=== PATIENT | male | born 1955 | race Caucasian/White ===

== ENCOUNTER 2022-04-11 12:40 | Outpatient (CLI) | payer MEDICARE, BC, SELFPAY | END 2022-04-11 12:41 | disposition home or self-care (01) | LOC: INJ CL 12:41 | PROVIDERS: PCP Family Medicine; Visit Provider Family Medicine | DX: M17.12 Unilateral primary osteoarthritis, left knee (principal); M25.562 Pain in left knee | CPT/HCPCS: 64454 ==

== ENCOUNTER 2022-05-05 09:15 | Outpatient (CLI) | payer MEDICARE, BC, SELFPAY | END 2022-05-05 09:16 | disposition home or self-care (01) | PROVIDERS: PCP Family Medicine; Visit Provider Family Medicine | DX: G89.29 Other chronic pain (principal); M17.12 Unilateral primary osteoarthritis, left knee; M25.562 Pain in left knee | CPT/HCPCS: 64624; J2250; J3010 ==

== ENCOUNTER 2023-08-16 10:26 | Emergency (ER) | payer MEDICARE, BC, SELFPAY ==
[2023-08-16] VITALS (9 sets, daily range): BP systolic 116–156; BP diastolic 77–110; PULSE 71–95; RESP 16; TEMP 36.9; O2SAT 96–97; BMI 28.7
--- NOTE | 2023-08-16 10:55 | ED_ITS ---
HPI - General Adult General Date Seen: 08/16/23 Chief complaint: Arrhythmia/Palpitations Stated complaint: AFIB Time Seen by Provider: 08/16/23 10:50 History of Present Illness HPI narrative: This is a pleasant 68-year-old gentleman accompanied to the ER this morning by his with concern for palpitations. He has a known history of AFib, apparently dating back 6 years. He has had 2 or 3 previous episodes which have been successfully treated with electrical cardioversion. He has not had any symptoms of AFib in about 2 years. He does take Eliquis faithfully and carvedilol to prevent tachycardia S. He is otherwise healthy. He has no history of coronary artery disease, CHF, or any valvular disease. This morning he felt his heart start to race and feel irregular. His Apple smart watch alerted him that he was in AFib. He is not having any chest pain. No lightheadedness or fainting. No trouble breathing. He just feels the palpitations and irregular because he is in AFib. No clear trigger for the AFib. No tobacco. No alcohol. Very limited caffeine (only chocolate, non coffee). No new supplements. No recent vomiting or diarrhea. No history of thyroid disorder. Related Data Home Medications ?Medication ?Instructions ?Recorded ?Confirmed apixaban 5 mg tablet 5 mg PO BID 10/05/22 08/16/23 budesonide 0.5 mg/2 mL suspension 0.5 mg inhalation QDAY 10/05/22 10/05/22 for nebulization carvedilol 3.125 mg tablet 3.125 mg PO BID 10/05/22 08/16/23 ketoconazole 2 % shampoo 1 applic topical .2-3 x week PRN 10/05/22 10/05/22 metronidazole 1 % topical cream 1 applic topical QDAY PRN 10/05/22 10/05/22 tolterodine 4 mg capsule,extended 4 mg PO DAILY 10/05/22 08/16/23 release 24 hr Previous Rx's ?Medication ?Instructions ?Recorded metronidazole 0.75 % topical cream 1 applic topical QDAY #45 grams 10/05/22 finasteride 5 mg tablet 2.5 mg (1/2 x 5 mg) PO DAILY #90 05/01/23 tabs clindamycin phosphate 1 % topical 1 applic topical DAILY #60 mL 06/14/23 solution Allergies Allergy/AdvReac Type Severity Reaction Status Date / Time No Known Drug Allergies Allergy Verified 08/16/23 10:37 PFSH PFS Surgical History (Updated 02/28/22 @ 07:47 by Sarah Gonsalves ~ [facility], [facility]) History of medial meniscus repair of right knee (05/31/01) ?Z98.890 - Other specified postprocedural states (ICD-10) History of sinus surgery (09/06/10) ?Z98.890 - Other specified postprocedural states (ICD-10) H/O nasal polypectomy (09/06/10) ?Z98.890 - Other specified postprocedural states (ICD-10) ?Z87.09 - Personal history of other diseases of the respiratory system (ICD- 10) History of nasal septoplasty (09/06/10) ?Z98.890 - Other specified postprocedural states (ICD-10) H/O arthroscopy of left knee (10/22/08) ?Z98.890 - Other specified postprocedural states (ICD-10) Social History Smoking Status: Former smoker How often do you have a drink containing alcohol: never AUDIT-C Alcohol total score: 0 Non-prescribed substance use: denies use Exam Narrative: Exam Narrative: Constitutional: Appears well-developed and well-nourished. Alert. Conversant. Non toxic. HENT: Head: Atraumatic. Nose: Nose normal. Mouth/Throat: Oral mucosa is clear and moist. no trismus. Pharynx normal. Tonsils symmetric. No tonsillar enlargement, erythema, or exudate. Mallampati 2 Eyes: Conjunctivae normal. EOM normal. Pupils equal, round, and reactive to light. No scleral icterus. Neck: Normal range of motion. Normal flexion and extension. Neck supple. No tracheal deviation present. No JVD Cardiovascular: Normal rate, irregularly irregular rhythm. No gallop. No friction rub. No murmur heard. Symmetric radial artery pulses Pulmonary/Chest: Effort normal. No stridor. No respiratory distress. No wheezes. No rales. No rhonchi . No tenderness. Abdominal: Soft.. No distension. No mass. No tenderness. No rebound. No guarding. Musculoskeletal: RUE: Normal range of motion. No tenderness. No deformity LUE: Normal range of motion. No tenderness. No deformity RLE: Normal range of motion. No edema. No tenderness. No deformity LLE: Normal range of motion. No edema. No tenderness. No deformity Neurological: Alert and oriented to person, place, and time. Normal strength. CN II-VII intact. No sensory deficit. GCS eye subscore is 4. GCS verbal subscore is 5. GCS motor subscore is 6. Normal coordination Skin: Skin is warm and dry. No rash noted. No pallor. Normal capillary refill. Psychiatric: Normal mood. Normal affect. Very polite. Const: Vital Signs, click to edit/add: Vital Signs - 24 hr 08/16/23 10:33 08/16/23 10:48 08/16/23 10:49 Temperature 98.5 F Pulse Rate 95 85 Pulse Rate [Left P ulse Oximeter] 87 Respiratory Rate 16 16 Blood Pressure 146/104 H Blood Pressure [Ri ght Upper Arm] 156/77 H Pulse Oximetry 96 96 97 Oxygen Delivery Me thod Room Air 08/16/23 11:00 08/16/23 11:01 08/16/23 11:15 Temperature Pulse Rate 81 82 80 Pulse Rate [Left P ulse Oximeter] Respiratory Rate 16 Blood Pressure 151/110 H Blood Pressure [Ri ght Upper Arm] Pulse Oximetry 97 97 97 Oxygen Delivery Me thod Room Air 08/16/23 11:30 08/16/23 11:32 08/16/23 11:45 Temperature Pulse Rate 72 71 71 Pulse Rate [Left P ulse Oximeter] Respiratory Rate Blood Pressure 116/88 Blood Pressure [Ri ght Upper Arm] Pulse Oximetry 96 96 96 Oxygen Delivery Me thod Course Course ED Course: recheck. Us with Cardiology, Dr. Simms. She agrees with our plan to go ahead with electrocardioversion here in the ER. If successful patient can follow-up in the next several weeks outpatient with his licensed massage therapist. If unsuccessful level call her back and she will help arrange expeditious outpatient EP follow- up. Vital Signs Vital signs: Initial Vital Signs Temperature 98.5 F 08/16/23 10:33 Temperature Source Temporal Artery Scan 08/16/23 10:33 Pulse Rate 87 08/16/23 10:33 Respiratory Rate 16 08/16/23 10:33 Blood Pressure 156/77 H 08/16/23 10:33 Blood Pressure Mean 103 08/16/23 10:33 Blood Pressure Position Sitting 08/16/23 10:33 Pulse Oximetry 96 08/16/23 10:33 Vital Signs Temperature 98.5 F 08/16/23 10:33 Pulse Rate 87 08/16/23 10:33 Respiratory Rate 16 08/16/23 10:33 Blood Pressure 156/77 H 08/16/23 10:33 Pulse Oximetry 96 08/16/23 10:33 Temperature 98.5 F 08/16/23 10:33 Pulse Rate 71 08/16/23 11:45 Respiratory Rate 16 08/16/23 11:01 Blood Pressure 116/88 08/16/23 11:32 Pulse Oximetry 96 08/16/23 11:45 Oxygen Delivery Method Room Air 08/16/23 11:01 Medications Administered Medications: Discontinued Medications Generic Name Dose Route Start Last Admin Trade Name Freq PRN Reason Stop Dose Admin Sodium Chloride 1,000 mls @ 1,000 mls/hr 08/16/23 12:45 08/16/23 12:55 0.9 % Sodium Chloride 1000 Ml IV 08/16/23 13:44 Infused .Q1H JOSE F Infusion Propofol 200 mg 08/16/23 11:18 08/16/23 12:28 Propofol 10 Mg/Ml Inj IVP 08/16/23 11:19 80 mg ONCE ONE Administration Medical Decision Making [facility] Narrative Medical decision making narrative: This patent presents for evaluation of palpitations, with very clear onset at this morning. He has a history of paroxysmal AFib dating back several years and is already on carvedilol and stroke prophylaxis with Eliquis. He has been consistent in taking his meds and has not missed any doses. This is consistent with atrial fibrillation with rapid ventricular response. Based on acute symptoms less than 48 hours, very clear story, good historian and after obtaining informed consent, electrical cardioversion was successful in converting rhythm back to normal sinus. I doubt acute coronary syndrome, thyroid issues, PE, dissection, drug ingestion, acute electrolyte imbalance, etc. Labs reassuring. Repeat EKG looks excellent. Asymptomatic after cardioversion now and would not hospitalize. Discussed with patient and the patient is in agreement. He will continue on his current medication regimen and follow up outpatient with Cardiology. Precautions for return to the ER reviewed. Reviewed sedation precautions with the patient and his . He will not drive and will avoid dangerous activities today. Lab Data Labs: Lab Results 08/16/23 Range/Units 11:15 WBC 6.62 (4.50-11.00) K/uL RBC 5.18 (4.30-5.90) m/uL Hgb 15.5 (13.5-17.5) gm/dL Hct 45.9 (37.0-53.0) % MCV 89 (80-100) fL MCH 30 (26-34) pg MCHC 34 (32-36) gm/dL RDW Coeff of Jeremy 11.8 (11.5-15.5) % Plt Count 218 (140-440) K/uL Neut % (Auto) 62.0 (42.0-72.0) % Lymph % (Auto) 20.5 (20-44) % [place] % (Auto) 10.1 (0.0-11.0) % Eos % (Auto) 5.9 (0.0-7.0) % Baso % (Auto) 0.3 (0.0-3.0) % Neut # (Auto) 4.10 (1.7-7.0) K/uL Lymph # (Auto) 1.36 (0.90-2.90) K/uL [place] # (Auto) 0.70 (0.00-0.90) K/UL Eos # (Auto) 0.39 (0.00-0.50) K/uL Baso # (Auto) 0.02 (0.00-0.30) K/uL Abs Immat Gran (auto) 0.08 (0.00-0.30) K/uL Imm/Tot Granulo (auto) 1.2 % Sodium 138 (135-149) mmol/L Potassium 4.1 (3.6-5.1) mmol/L Chloride 106 (96-114) mmol/L Carbon Dioxide 25 (20-32) mmol/L Anion Gap 7 (7-15) mEq/L BUN 18 (7-30) mg/dL Creatinine 0.9 (0.5-1.5) mg/dL Estimated Creat Clear 73.00 Estimated GFR 93 ml/min Glucose 134 H (60-115) mg/dL Calcium 8.6 (8.4-10.6) mg/dL Troponin I < 0.01 L (0.01-0.04) ng/mL ECG Data Attestation: I personally reviewed and interpreted this ECG as follows: Interpretation: Atrial fibrillation with normal ventricular response. Premature ventricular contractions Rate: 94 MT: na QRS axis: Normal axis. ST segment/T wave: T-wave inversions 2, 3, AVF. No ST segment elevation or depression. QTc: Prolonged QT. QTC 460 Discharge Plan Discharge Clinical Impression: Atrial fibrillation Patient Disposition: Home, Self-Care Condition: Stable Instructions: A-fib (Atrial Fibrillation) (ED) Additional Instructions: As we discussed, please call your licensed massage therapist at [facility] today to arrange a follow-up appointment for your AFib in the next few weeks. Continue on your current medications. If you have more trouble with AFib such as palpitations, or if you have dizzy spells, fainting, lightheadedness, chest pain, or trouble breathing, please come back to the ER right away. Because you had sedation medication today should not drive today. Stay home and rest. Light activities are fine but avoid any strenuous activity or dangerous activities until tomorrow. Prescriptions: No Action apixaban 5 mg tablet 5 mg PO BID budesonide 0.5 mg/2 mL suspension for nebulization 0.5 mg inhalation QDAY ketoconazole 2 % shampoo 1 applic topical .2-3 x week PRN metronidazole 1 % cream 1 applic topical QDAY PRN metronidazole 0.75 % cream 1 applic topical QDAY Qty: 45 1RF carvedilol 3.125 mg tablet 3.125 mg PO BID tolterodine 4 mg capsule,extended release 24hr 4 mg PO DAILY finasteride 5 mg tablet 2.5 mg PO DAILY Qty: 90 0RF clindamycin phosphate 1 % solution 1 applic topical DAILY Qty: 60 0RF Follow Up/Referrals: Mike Costello MD [Primary Care Provider] - Stand Alone Forms: [facility] Info Instructions Procedures Procedural Sedation Pre procedure diagnosis: Atrial fibrillation Post procedure diagnosis: AFib, now converted to sinus Written consent by: patient Verification/time out: correct patient, correct site and correct procedure Assistants, if any: Dr. Meredith, who assisted with cardioversion Indication: other (Cardioversion of atrial fibrillation) ASA Class: II Time of Last PO Intake: 08:00 Mallampati classification: II. soft palate, fauces, uvula visible Preparation: lockstitch cup setter applied, pulse oximeter, capnometry used, supplemental O2 applied, reversal agents at bedside, suction/airway equipment at bedside and IV secured IV Propofol dose (mg): 80 Complications: none Additional Comments: Electrical cardioversion for atrial fibrillation performed by Dr. Meredith. Using synchronized biphasic defibrillator with anterior posterior pad placement. We administered a single shock at 150 joules. This is shock was successful in restoring sinus rhythm.
[2023-08-16 11:47] LABS: Basophils Absolute Auto 0.02 K/uL (0.00-0.30); Basophils Percent Auto 0.3 % (0.0-3.0); Eosinophils Absolute Auto 0.39 K/uL (0.00-0.50); Eosinophils Percent Auto 5.9 % (0.0-7.0); Hematocrit 45.9 % (37.0-53.0); Hemoglobin* 15.5 gm/dL (13.5-17.5); Immature Granulocytes Abs Auto 0.08 K/uL (0.00-0.30); Immature Granulocytes Pct Auto 1.2 %; Lymphocytes Absolute Auto 1.36 K/uL (0.90-2.90); Lymphocytes Percent Auto 20.5 % (20-44); Mean Corpuscular HGB Conc 34 gm/dL (32-36); Mean Corpuscular Hemoglobin 30 pg (26-34); Mean Corpuscular Volume 89 fL (80-100); Monocytes Percent Auto 10.1 % (0.0-11.0); Platelet Count* 218 K/uL (140-440); RDW Coefficient of Variation % 11.8 % (11.5-15.5); Red Blood Count 5.18 m/uL (4.30-5.90); White Blood Count* 6.62 K/uL (4.50-11.00)
[2023-08-16 11:52] LABS: Slide Review Reflex No
--- OUTSIDE RECORDS SUMMARY | 2023-08-16 11:54 | XMS_ITS | Continuity of Care Document ---
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 facilities. It does not include entries that were removed or entered in error. 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 facilities.Medications provided include 1) outpatient medications from the last 15 months, and 2) patient-reported medications. Medication Details Route Status Patient Instructions Prescription Expires Prescription Number Last Dispense Date Ordering Provider Order Date Order Qty Source APIXABAN 5MG TAB TAKE ONE TABLET BY MOUTH TWICE A DAY TO PREVENT STROKES ORAL ACTIVE 09/30/2023 [id number] Casey BRAVO [facility] 2023 180 [facility] APIXABAN 5MG TAB TAKE ONE TABLET BY MOUTH TWICE A DAY TO PREVENT STROKES ORAL DISCONT INUED 07/22/2023 [id number] 4 Casey BRAVO [facility] 2022 180 [facility] CARVEDILOL 6.25MG TAB TAKE ONE-HALF TABLET BY MOUTH TWICE A DAY ORAL ACTIVE HAPAK,SOP HIE M 2019 [facility] CHOLECALCIF CASEY 25MCG (1,000UNIT) TAB TAKE TWO TABLETS BY MOUTH EVERY MORNING ORAL ACTIVE HAPAK,SOP HIE M 2017 [facility] MULTIVITAMI N/MINERALS SENIOR FORMULA TAB TAKE TWO TABLETS BY MOUTH EVERY DAY ORAL ACTIVE FILI GAN 2016 [facility] Immunizations Combined list of available immunizations from the Department of Defense and Veterans Affairs facilities. Immunization Series Date Given Administered By Site Reaction Lot Number CVX Code Drug Silo Painter Status Comments Source INFLUENZA, UNSPECIFIED FORMULATION 2020 88 complet ed [facility] COVID-19 (MODERNA), MRNA, LNP-S, PF, 100 MCG/0.5 ML DOSE 2 2020 207 complet ed MOD: [id number]; 1 [facility] COVID-19 (MODERNA), MRNA, LNP-S, PF, 100 MCG/0.5 ML DOSE 1 2020 207 complet ed MOD; [id number]; 1 [facility] INFLUENZA, UNSPECIFIED FORMULATION 2019 88 complet ed [facility] INFLUENZA, SEASONAL, INJECTABLE 2018 141 complet ed [facility] INFLUENZA, INJECTABLE, QUADRIVALENT, PRESERVATIVE FREE 2017 150 complet ed [facility] Administe red by: [facility] Clinician (NPI=Not Provided) . Partner 3 Lot#: [id number] Mfr: [employer] [facility] INFLUENZA, SEASONAL, INJECTABLE 2016 141 complet ed [facility] INFLUENZA, SEASONAL, INJECTABLE 2016 141 complet ed [facility] TDAP 2016 115 complet ed [employer]. [id number], 08/23/18 [facility] INFLUENZA, SEASONAL, INJECTABLE 2015 141 complet ed [facility] Results Combined list of recent chemistry, hematology and other laboratory results from Department of Defense and Veterans Affairs, ranging from 15 months to all on record, depending upon the facility. Order Name Results Value Reference Range Date Interpretation Specimen Comments Source ALT/SG PT ALANINE AMINOTRANSFE RASE [ENZYMATIC ACTIVITY/VOL UME] IN SERUM OR PLASMA 25 U/L <55 - 55 01/10 Specimen Type: PLASMA No comment entered. Ordering Provider: JORGE WILLIAM Report Released Date/Time: Dec 11, 2022 09:10 AM Reporting Lab: [facility] [address] Performing Lab: [facility] [address] [facility] AST/SG OT ASPARTATE AMINOTRANSFE RASE [ENZYMATIC ACTIVITY/VOL UME] IN SERUM OR PLASMA 24 U/L <34 - 34 01/10 Specimen Type: PLASMA No comment entered. Ordering Provider: JORGE WILLIAM IN M Report Released Date/Time: Dec 11, 2022 09:10 AM Reporting Lab: [facility] [phone] Performing Lab: [place] [address] [facility] CBC LEUKOCYTES [#/VOLUME] IN BLOOD BY AUTOMATED COUNT 6.78 10*3/u L 4.0 - 11.0 01/10 Specimen Type: BLOOD No comment entered. Ordering Provider: JORGE WILLIAM IN M Report Released Date/Time: Dec 11, 2022 09:10 AM Reporting Lab: [facility] [address] Performing Lab: [facility] [address] [facility] CBC ERYTHROCYTES [#/VOLUME] IN BLOOD BY AUTOMATED COUNT 4.99 10*6/u L 4.6 - 6.2 01/10 Specimen Type: BLOOD No comment entered. Ordering Provider: JORGE WILLIAM IN M Report Released Date/Time: Dec 11, 2022 09:10 AM Reporting Lab: [facility] [address] Performing Lab: [facility] [address] [facility] CBC HEMOGLOBIN [MASS/VOLUME ] IN BLOOD 15.0 g/dL 13.5 - 17.9 01/10 Specimen Type: BLOOD No comment entered. Ordering Provider: JORGE WILLIAM IN M Report Released Date/Time: Dec 11, 2022 09:10 AM Reporting Lab: [facility] [address] Performing Lab: [facility] [address] [facility] CBC HEMATOCRIT [VOLUME FRACTION] OF BLOOD BY AUTOMATED COUNT 44.0 41 - 54 01/10 Specimen Type: BLOOD No comment entered. Ordering Provider: JORGE WILLIAM IN M Report Released Date/Time: Dec 11, 2022 09:10 AM Reporting Lab: [facility] [address] Performing Lab: [facility] [address] [facility] CBC MCV [ENTITIC VOLUME] BY AUTOMATED COUNT 88.2 fL 80 - 100 01/10 Specimen Type: BLOOD No comment entered. Ordering Provider: JORGE WILLIAM IN M Report Released Date/Time: Dec 11, 2022 09:10 AM Reporting Lab: [facility] [address] Performing Lab: [facility] [address] [facility] CBC MCH [ENTITIC MASS] BY AUTOMATED COUNT 30.1 pg 27 - 33 01/10 Specimen Type: BLOOD No comment entered. Ordering Provider: JORGE WILLIAM IN M Report Released Date/Time: Dec 11, 2022 09:10 AM Reporting Lab: [facility] [address] Performing Lab: [facility] [address] [facility] CBC MCHC [MASS/VOLUME ] BY AUTOMATED COUNT 34.1 g/dL 32.0 - 37.5 01/10 Specimen Type: BLOOD No comment entered. Ordering Provider: JORGE WILLIAM IN M Report Released Date/Time: Dec 11, 2022 09:10 AM Reporting Lab: [facility] [address] Performing Lab: [facility] [address] [facility] CBC PLATELETS [#/VOLUME] IN BLOOD BY AUTOMATED COUNT 209 10*3/u L 150 - 400 01/10 Specimen Type: BLOOD No comment entered. Ordering Provider: JORGE WILLIAM IN M Report Released Date/Time: Dec 11, 2022 09:10 AM Reporting Lab: [facility] [address] Performing Lab: [facility] [address] [facility] CBC PLATELET MEAN VOLUME [ENTITIC VOLUME] IN BLOOD BY AUTOMATED COUNT 9.7 fL 7.4 - 10.4 01/10 Specimen Type: BLOOD No comment entered. Ordering Provider: JORGE WILLIAM IN M Report Released Date/Time: Dec 11, 2022 09:10 AM Reporting Lab: [facility] [address] Performing Lab: [facility] [address] [facility] CBC ERYTHROCYTE DISTRIBUTION WIDTH [RATIO] BY AUTOMATED COUNT 11.9 11.5 - 14.5 01/10 Specimen Type: BLOOD No comment entered. Ordering Provider: JORGE WILLIAM IN M Report Released Date/Time: Dec 11, 2022 09:10 AM Reporting Lab: [facility] [address] Performing Lab: [facility] [address] [facility] CREATI NINE(I NCLUDE S EGFR) CREATININE [MASS/VOLUME ] IN SERUM OR PLASMA 0.9 mg/dL 0.7 - 1.2 01/10 Specimen Type: PLASMA No comment entered. Ordering Provider: JORGE WILLIAM IN M Report Released Date/Time: Dec 11, 2022 09:10 AM Reporting Lab: [facility] [phone] Performing Lab: [facility] [address] [facility] CREATI NINE(I NCLUDE S EGFR) GLOMERULAR FILTRATION RATE/1.73 SQ M.PREDICTED [VOLUME RATE/AREA] IN SERUM, PLASMA OR BLOOD BY CREATININE-B ASED FORMULA (CKD-EPI 2020) >90 60 01/10 Specimen Type: PLASMA No comment entered. Ordering Provider: JORGE WILLIAM IN M Report Released Date/Time: Dec 11, 2022 09:10 AM Reporting Lab: [facility] [address] Performing Lab: [facility] [address] [facility] ALT/SG PT ALANINE AMINOTRANSFE RASE [ENZYMATIC ACTIVITY/VOL UME] IN SERUM OR PLASMA 31 U/L <55 - 55 11/10 Specimen Type: PLASMA No comment entered. Ordering Provider: CHESTER BRAVO Report Released Date/Time: July 04, 2021 01:00 PM Reporting Lab: [facility] [address] Performing Lab: [facility] [address] [facility] AST/SG OT ASPARTATE AMINOTRANSFE RASE [ENZYMATIC ACTIVITY/VOL UME] IN SERUM OR PLASMA 22 U/L <34 - 34 11/10 Specimen Type: PLASMA No comment entered. Ordering Provider: CHESTER BRAVO Report Released Date/Time: July 04, 2021 01:00 PM Reporting Lab: [facility] [address] Performing Lab: [facility] [address] [facility] CBC LEUKOCYTES [#/VOLUME] IN BLOOD BY AUTOMATED COUNT 7.45 10*3/u L 4.0 - 11.0 11/10 Specimen Type: BLOOD No comment entered. Ordering Provider: CHESTER BRAVO Report Released Date/Time: July 04, 2021 01:00 PM Reporting Lab: [facility] [address] Performing Lab: [facility] [address] [facility] CBC ERYTHROCYTES [#/VOLUME] IN BLOOD BY AUTOMATED COUNT 4.96 10*6/u L 4.6 - 6.2 11/10 Specimen Type: BLOOD No comment entered. Ordering Provider: CHESTER BRAVO Report Released Date/Time: July 04, 2021 01:00 PM Reporting Lab: [facility] [address] Performing Lab: [facility] [address] [facility] CBC HEMOGLOBIN [MASS/VOLUME ] IN BLOOD 15.1 g/dL 13.5 - 17.9 11/10 Specimen Type: BLOOD No comment entered. Ordering Provider: CHESTER BRAVO Report Released Date/Time: July 04, 2021 01:00 PM Reporting Lab: [facility] [address] Performing Lab: [facility] [address] [facility] CBC HEMATOCRIT [VOLUME FRACTION] OF BLOOD BY AUTOMATED COUNT 44.1 41 - 54 11/10 Specimen Type: BLOOD No comment entered. Ordering Provider: CHESTER BRAVO Report Released Date/Time: July 04, 2021 01:00 PM Reporting Lab: [facility] [address] Performing Lab: [facility] [address] [facility] CBC MCV [ENTITIC VOLUME] BY AUTOMATED COUNT 88.9 fL 80 - 100 11/10 Specimen Type: BLOOD No comment entered. Ordering Provider: CHESTER BRAVO Report Released Date/Time: July 04, 2021 01:00 PM Reporting Lab: [facility] [address] Performing Lab: [facility] [address] [facility] CBC MCH [ENTITIC MASS] BY AUTOMATED COUNT 30.4 pg 27 - 33 11/10 Specimen Type: BLOOD No comment entered. Ordering Provider: CHESTER BRAVO Report Released Date/Time: July 04, 2021 01:00 PM Reporting Lab: [facility] [address] Performing Lab: [facility] [address] [facility] CBC MCHC [MASS/VOLUME ] BY AUTOMATED COUNT 34.2 g/dL 32.0 - 37.5 11/10 Specimen Type: BLOOD No comment entered. Ordering Provider: CHESTER BRAVO Report Released Date/Time: July 04, 2021 01:00 PM Reporting Lab: [facility] [address] Performing Lab: [facility] [address] [facility] CBC PLATELETS [#/VOLUME] IN BLOOD BY AUTOMATED COUNT 220 10*3/u L 150 - 400 11/10 Specimen Type: BLOOD No comment entered. Ordering Provider: CHESTER BRAVO Report Released Date/Time: July 04, 2021 01:00 PM Reporting Lab: [facility] [address] Performing Lab: [facility] [address] [facility] CBC PLATELET MEAN VOLUME [ENTITIC VOLUME] IN BLOOD BY AUTOMATED COUNT 9.1 fL 7.4 - 10.4 11/10 Specimen Type: BLOOD No comment entered. Ordering Provider: CHESTER BRAVO Report Released Date/Time: July 04, 2021 01:00 PM Reporting Lab: [facility] [address] Performing Lab: [facility] [address] [facility] CBC ERYTHROCYTE DISTRIBUTION WIDTH [RATIO] BY AUTOMATED COUNT 12.1 11.5 - 14.5 11/10 Specimen Type: BLOOD No comment entered. Ordering Provider: CHESTER BRAVO Report Released Date/Time: July 04, 2021 01:00 PM Reporting Lab: [facility] [address] Performing Lab: [facility] [address] [facility] CREATI NINE(I NCLUDE S EGFR) CREATININE [MASS/VOLUME ] IN SERUM OR PLASMA 0.9 mg/dL .7 - 1.2 11/10 Specimen Type: PLASMA No comment entered. Ordering Provider: CHESTER BRAVO Report Released Date/Time: July 04, 2021 01:00 PM Reporting Lab: [facility] [address] Performing Lab: [facility] [address] [facility] CREATI NINE(I NCLUDE S EGFR) GLOMERULAR FILTRATION RATE/1.73 SQ M.PREDICTED [VOLUME RATE/AREA] IN SERUM, PLASMA OR BLOOD BY CREATININE-B ASED FORMULA (CKD-EPI) >90 60 11/10 Specimen Type: PLASMA No comment entered. Ordering Provider: CHESTER BRAVO Report Released Date/Time: July 04, 2021 01:00 PM Reporting Lab: [facility] [address] Performing Lab: [facility] [address] [facility] Encounters Combined list of: 1) Encounters from Department of [facility] Affairs facilities going back up to thelast 18 months. 2) Encounters from the Department of [facility] facilities going back up to 280 months. 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
CHRISTOPHER BRAVO 07/01 [facility] Social History Combined list of available smoking, tobacco, and other social history from Department of Defense and Veterans Affairs facilities. Social History Type Response Date Comment Sourc e Tobacco smoking status NHIS VA-TOBACCO FORMER USER 06/23/2020 [facility] History of tobacco use TX-TOBACCO QUIT 1 5 YRS OR MORE 06/23/2020 [facility] History of tobacco use VA-TOBACCO FORMER USER 04/30/2019 [facility] History of tobacco use VA-TOBACCO FORMER USER 04/23/2018 [facility] History of tobacco use INPT NO TOBACCO U SE IN LAST 30 DAYS 04/17/2017 [facility] History of tobacco use FORMER TOBACCO US ER 7Y OR GREATER 07/19/2016 [facility] Plan of Care List of future care activities from Department of Veterans Affairs facilities. Additional future care activities may be listed in the Assessment and Plan section. Date/Time Care Activity Care Activity Detail Facili ty 08/22/2023 AMBULATORY - MEDICINE AMBULATORY - MEDICI NE [facility] Advance Directives List of completed, amended, or rescinded Advance Directives on record at Department of Veterans Affairs facilities. An actual copy of the Directive is not included. Date Advance Directive Provider Source 04/19/2017 ADVANCE DIRECTIVE DISCUSSION LUPE SINGH ROLE J [facility]
--- OUTSIDE RECORDS SUMMARY | 2023-08-16 11:55 | XMS_ITS | Encounter Summary ---
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 Name Role Phone Carmela Sweeney MD Primary Care Pr ovider Encounter Details Date Type Department Care Team (Late st Contact Info) Description 09/20/2015 Orders Only [facility] [address] [place] [address] , Bean Estrada MD [address] [place] [address] Social History Tobacco Use Types Packs/Day Years Used Date Smoking Tobacco: Never Assessed Sex and Gender Information Value Date Recorded Sex Assigned at Not on file Gender Identity Not on file Sexual Orientation Not on file documented as of this encounter Plan of Treatment Not on file documented as of this encounter Visit Diagnoses Not on filedocumented in this encounter Care Teams Motor Grader Rough Grade Relationship Specialty Start Date End Date Carmela Sweeney MD [address] [place], [place] [address] PCP - General 05/24/10 documented as of this encounter
--- OUTSIDE RECORDS SUMMARY | 2023-08-16 11:55 | XMS_ITS | Encounter Summary ---
Author Name [facility] Organization [facility] Address [address] [place] [address] Care Team Providers Care Furnace Hand Name Role Phone MARIBEL BROWN Primary Care Provider SHAWN Love Unavailable Unavailable Insurance Providers: All historical and current Section Date Range: From patient's date of to the date document was created. This section includes the names of all active insurance providers for the patient. Insurance Provider Type of Coverage Plan Name Start of Policy Coverage End of Policy Coverage Group Number Member ID Insurance Provider's Telephone Number Policy Ying's Name Patient's Relationship to Policy Ying [place] SU[place] MED[place] SUPPL EMENT Jul 20, 2018 [id number] Ngoc CARTAGENA [place]IENT [place] PREFERRED PROVIDER ORGANIZAT ION (PPO) ALEYDAE DWIGHT AND ROSAMARIA May 20, 2017 [id number] Ngoc CARTAGENA PATIENT [place] SUPPLEMEN EMNA MEDIC ARE SUPPL EMENT Jul 20, 2018 [id number] [phone] Ngoc CARTAGENA PATIENT [place] - WNR [place] SPECIAL CLASS [place] May 25, 2016 CAMP [place] [id number] Ngoc CARTAGENA PATIENT MEDCO ([employer]) PRESCRIPT ION [facility] [place] May 20, 2017 [place] [id number] [phone] Ngoc CARTAGENA PATIENT MEDICARE (WNR) MEDICARE (M) PART A Jul 20, 2018 PART A [id number] Ngoc CARTAGENA PATIENT MEDICARE (WNR) MEDICARE (M) PART B Jul 20, 2018 PART B [id number] Ngoc CARTAGENA PATIENT Selected Encounter This section includes the information on record at PA for the Encounter. Date/Time Encounter Type Encounter Description Reason Provider Source July 02, 2023 02:26 PM QNHP OL DIG ASSMT&MGMT 5-10 CLINICAL PHARMACY ICD-10-CM Z79.01 care home (current) use of anticoagulants [facility] Encounter Template Text not used by PA Assessments - Encounter Diagnoses This section includes the primary and secondary diagnoses documented for the Encounter. 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 This section includes future appointments and future orders which are active, pending or scheduled. Future Appointments This section includes appointments that were scheduled to occur 6 months from the date of the Encounter, up to a maximum of 20 appointments. The data comes from all PA treatment facilities. Appointment Date/Time Appointment Type Appointme nt Facility Name Aug 22, 2023 09:00 AM AMBULATORY - MEDICINE [facility] Social History: Smoking Status (Most current) and Tobacco Use (All prior to encounter date) This section includes the most current, and the historical, smoking and tobacco- related health factors from the PA facility where the Encounter took place. Current Smoking Status This section includes the most current smoking, or tobacco-related health factor, from the PA facility where the Encounter took place. Date/Time Current Smoking Status Marquise alfred June 23, 2020 11:00 AM VA-TOBACCO FORMER USER [facility] Tobacco Use History This section includes a history of the smoking, or tobacco-related health factors, that were collected on or before the date of the Encounter. The data comes from the PA facility where the Encounter took place. Date/Time Smoking Status/Tobacco Use Comment F acility June 23, 2020 11:00 AM VA-TOBACCO QUIT 15 YRS OR MORE [facility] Apr 30, 2019 08:26 AM VA-TOBACCO FORMER USER [facility] Apr 30, 2019 08:26 AM VA-TOBACCO QUIT 15 YRS OR MORE [facility] Apr 23, 2018 11:35 AM VA-TOBACCO FORMER USER [facility] Apr 23, 2018 11:35 AM VA-TOBACCO QUIT 15 YRS OR MORE [facility] Apr 17, 2017 06:26 AM INPT NO TOBACCO USE IN LAST 30 D AYS [facility] July 19, 2016 04:34 PM FORMER TOBACCO USER 7Y OR GREATE R [facility] Advance Directives: All historical and current Section Date Range: From patient's date of to the date document was created. This section includes ALL of a patient's completed or amended PA Advance and Rescinded Directives. The entries below indicate that a directive exists for the patient, but an actual copy is not included with this document. The data comes from all PA facilities. Date Advance Directives Provider Source Apr 19, 2017 ADVANCE DIRECTIVE DISCUSSION LUPE SINGH ROLE J [facility] Encounter Notes: All associated encounter notes This section contains the clinical notes associated to the Encounter. Date/Time Encounter Note(s) Provider Source July 02, 2023 02:39 PM LETTERS: LOCAL TITLE: FOLLOW UP RESULTS LETTER STANDARD TITLE: LETTERS DATE OF NOTE: JULY 02, 2023@14:39 ENTRY DATE: JULY 02, 2023@14:39:19 AUTHOR: PAWEL BRAVO EXP COSIGNER: URGENCY: STATUS: COMPLETED SUBJECT: anticoag [facility] [address] [place] [address] June RAUL CARTAGENA [facility] [id number] Dear Weston: We are following up on your anticoagulant (blood thinner) medication, Apixaban. You haven't been seen by Primary Care since 01/2021; your provider has been advised. Please call the Primary Care Call Center to make an appt in the next 3 months or so. If you fall out of their roster, we can not provide the apixaban. We renewed your prescription for 90 days, no refills, until seen by Primary Care; it will be mailed when due next. Sincerely, [facility] Team Phone number: [phone] -option 1 to schedule or reschedule an appointment -option 2 to refill medications or call the phone number on the bottle -option 3 for all other communication Fax number: [phone] Clinic Hours: Sunday-Sunday, 8:00am to 4:00pm (excluding Federal holidays) PAWEL BRAVO [facility] Clinical Reticle Printer, [facility] PAWEL BRAVO [facility] July 02, 2023 02:38 PM ADDENDUM: LOCAL TITLE: Addendum STANDARD TITLE: ADDENDUM DATE OF NOTE: JULY 02, 2023@14:38:10 ENTRY DATE: JULY 02, 2023@14:38:12 AUTHOR: PAWEL BRAVO EXP COSIGNER: URGENCY: STATUS: COMPLETED PCP Please see note above/plan regarding last known appt. Maddie /nubia/ PAWEL BRAVO [facility] Clinical Reticle Printer, [facility] Signed: 07/02/2023 14:39 Receipt Acknowledged By: 07/08/2023 06:25 /nubia/ SHAWN CALVO MD RESIDENT PHYSICIAN --- Original Document --- 07/02/23 PHARMACY ANTICOAGULATION CLINIC F/U: DOAC DASHBOARD ALERT AND/OR RENEWAL FLAG Anticoagulation regimen: Apixaban 5mg every 12 hours Indication(s): A-fib Relevant PMH: - Prior major bleeds: none - Prior anticoagulants: none Start date: 01/2017 Anticipated duration: indefinite - CHADS2-VASC = 3 (age,HTN,cardiomyopathy) - HAS-BLED = 1 (age)= Moderate risk SUBJECTIVE/OBJECTIVE: Obtained from chart review. Dashboard flags: Pt requested renewal Labs ==== Age: 68 Height: 70 in [177.8 cm] (06/23/2020 10:22) Weight: 213.3 lb [96.75 kg] (01/20/2021 08:25) Collection DT Specimen Test Name Result Units Ref Range 01/10/2023 07:38 PLASMA CREATININE 0.9 mg/dL 0.7 - 1.2 11/10/2021 09:44 PLASMA CREATININE 0.9 mg/dL .7 - 1.2 08/03/2020 07:08 PLASMA CREATININE 0.9 mg/dL 0.7 - 1.2 04/30/2019 08:02 PLASMA CREATININE 0.9 mg/dL 0.7 - 1.2 04/22/2018 09:31 PLASMA CREATININE 0.8 mg/dL .7 - 1.2 04/20/2017 05:30 PLASMA CREATININE 1.0 mg/dL .7 - 1.2 Cockcroft & Gault (Actual body weight) = >100 mL/min Collection DT Spec WBC HGB HCT PLT MCV 01/10/2023 07:38 BLOOD 6.78 15.0 44.0 209 88.2 01/10/2023 07:38 PLASMA AST/SGOT 24 U/L Ref: <=34 01/10/2023 07:38 PLASMA ALT/SGPT 25 U/L Ref: <=55 ASSESSMENT/PLAN: Per chart review, appropriate for continued anticoagulant use. No contraindications noted. Benefit of therapy continues to outweigh risk. Lab monitoring current and without concern. - Risk/benefit/background updated as above. - Continue anticoagulation at current dose. - Monitor dashboard for labs, drug interactions, and compliance. - Dashboard flags reviewed/cleared, if applicable. - Lab monitoring frequency defined by dashboard or as clinically indicated. - Rx reviewed - renewed for 90ds no refills until pt sees a PA MD, it has been > 2yrs - Pt needs annual DOAC labs at [facility]/CB with PCP visit- please order DOAC Bundle - Pt has not been seen by or spoken to PCP since 01/2021- sending alert to PCP and LTP Time spent: 10 min /nubia/ PAWEL BRAVO [facility] Clinical Reticle Printer, [facility] Signed: 07/02/2023 14:37 PAWEL BRAVO [facility] July 02, 2023 02:26 PM PHARMACY OUTPATIEN T MEDICATION MGT NOTE: LOCAL TITLE: PHARMACY ANTICOAGULATION CLINIC F/U STANDARD TITLE: PHARMACY OUTPATIENT MEDICATION MGT NOTE DATE OF NOTE: JULY 02, 2023@14:26:50 ENTRY DATE: JULY 02, 2023@14:26:51 AUTHOR: PAWEL BRAVO EXP COSIGNER: URGENCY: STATUS: COMPLETED PHARMACY ANTICOAGULATION CLINIC F/U Has ADDENDA DOAC DASHBOARD ALERT AND/OR RENEWAL FLAG Anticoagulation regimen: Apixaban 5mg every 12 hours Indication(s): A-fib Relevant PMH: - Prior major bleeds: none - Prior anticoagulants: none Start date: 01/2017 Anticipated duration: indefinite - CHADS2-VASC = 3 (age,HTN,cardiomyopathy) - HAS-BLED = 1 (age)= Moderate risk SUBJECTIVE/OBJECTIVE: Obtained from chart review. Dashboard flags: Pt requested renewal Labs ==== Age: 68 Height: 70 in [177.8 cm] (06/23/2020 10:22) Weight: 213.3 lb [96.75 kg] (01/20/2021 08:25) Collection DT Specimen Test Name Result Units Ref Range 01/10/2023 07:38 PLASMA CREATININE 0.9 mg/dL 0.7 - 1.2 11/10/2021 09:44 PLASMA CREATININE 0.9 mg/dL .7 - 1.2 08/03/2020 07:08 PLASMA CREATININE 0.9 mg/dL 0.7 - 1.2 04/30/2019 08:02 PLASMA CREATININE 0.9 mg/dL 0.7 - 1.2 04/22/2018 09:31 PLASMA CREATININE 0.8 mg/dL .7 - 1.2 04/20/2017 05:30 PLASMA CREATININE 1.0 mg/dL .7 - 1.2 Cockcroft & Gault (Actual body weight) = >100 mL/min Collection DT Spec WBC HGB HCT PLT MCV 01/10/2023 07:38 BLOOD 6.78 15.0 44.0 209 88.2 01/10/2023 07:38 PLASMA AST/SGOT 24 U/L Ref: <=34 01/10/2023 07:38 PLASMA ALT/SGPT 25 U/L Ref: <=55 ASSESSMENT/PLAN: Per chart review, appropriate for continued anticoagulant use. No contraindications noted. Benefit of therapy continues to outweigh risk. Lab monitoring current and without concern. - Risk/benefit/background updated as above. - Continue anticoagulation at current dose. - Monitor dashboard for labs, drug interactions, and compliance. - Dashboard flags reviewed/cleared, if applicable. - Lab monitoring frequency defined by dashboard or as clinically indicated. - Rx reviewed - renewed for 90ds no refills [facility] a [facility], it has been > 2yrs - Pt needs annual DOAC labs at [facility]/CB with PCP visit- please order DOAC Bundle - Pt has not been seen by or spoken to PCP since 01/2021- sending alert to PCP and LTP Time spent: 10 min /nubia/ PAWEL BRAVO [facility] Clinical Reticle Printer, [facility] Signed: 07/02/2023 14:37 07/02/2023 ADDENDUM STATUS: COMPLETED PCP Please see note above/plan regarding last known appt. Thanks /nubia/ PAWEL BRAVO [facility] Clinical Reticle Printer, [facility] Signed: 07/02/2023 14:39 Receipt Acknowledged By: * AWAITING SIGNATURE * SHAWN CALVO DINAH [facility]
--- OUTSIDE RECORDS SUMMARY | 2023-08-16 11:55 | XMS_ITS | Clinical Summary ---
Author Organization [facility] Address [address] [place] [address] Care Team Providers Care Dip Filler Name Role Phone Carmela Sweeney MD Primary Care Pr ovider Source Comments You are receiving this document as you are listed as the primary care provider,follow-up provider, or the patient has been referred to you for consultation.This is in compliance with the Medicare and[facility] EHR Incentive Program,which states Providers who transition their patient to another setting of careor provider of care or refers their patient to another provider of care shouldprovide summary care record for each transition of care or referral. Favoe Allergies No known active allergies Medications Medication Sig Dispensed Refills Start Date End Date Status ELIQUIS 5 MG tablet 02/18/2018 Activ e lisinopril (ZESTRIL) 20 MG tablet 10/31/2017 Active Active Problems No known active problems Social History Tobacco Use Types Packs/Day Years Used Date Smoking Tobacco: Never Smokeless Tobacco: Never Alcohol Use Standard Drinks/Week Comments Yes 6 (1 standard drink = 0.6 oz pur e alcohol) Sex and Gender Information Value Date Recorded Sex Assigned at Not on file Gender Identity Not on file Sexual Orientation Not on file Last Filed Vital Signs Vital Sign Reading Time Taken Comments Blood Pressure 156/77 03/06/2018 12:43 PM EMERGENCY NURSE Pulse 49 03/06/2018 12:43 PM EMERGENCY NURSE Temperature 36.5 ??C (97.7 ??F) 03/06/2018 12:[address] Respiratory Rate 16 03/06/2018 12:43 PM EMERGENCY NURSE Oxygen Saturation 100% 03/06/2018 12:43 PM EMERGENCY NURSE Inhaled Oxygen Concentration - - Weight 86.2 kg (190 lb 0.6 oz) 03/06/2018 11:59 AM EMERGENCY NURSE Height 177.8 cm (5' 10) 03/06/2018 11:59 AM EMERGENCY NURSE Body Mass Index 27.27 03/06/2018 11:59 AM EMERGENCY NURSE Plan of Treatment Health Maintenance Due Date Last Done Comments Colon Cancer Screening Plan Due 1955 Hep C Screening (Preventive Services) 1955 PSA Screening Discussion 1955 Adult Preventive Visit 1973 Cholesterol 1990 Zoster/Shingles (1 of 2) 2005 Pneumococcal 65+ Yrs (2 - PCV) 03/29/2021 03/29/2020 COVID-19 Vaccine ( - season) 2022 Influenza (Season Ended) 2023 020, 11/05/2018, 11/27/2017, Additional history exists DTaP/Tdap/Td (3 - Tdap) 04/03/2029 04/03/19 20, 04/19/2007, 02/26/1995 HepA Aged Out No longer eligi ble based on patient's age to complete this topic HepB Aged Out No longer eligi ble based on patient's age to complete this topic Hib Aged Out No longer eligi ble based on patient's age to complete this topic IPV (Polio) Aged Out No longer eligi ble based on patient's age to complete this topic MCV4 Aged Out No longer eligi ble based on patient's age to complete this topic Advance Directives * Full Code (Latest Code Status on File) Date Activated Date Inactivated Comments 03/06/2018 12:09 PM 03/07/2018 11:31 AM * Full Code Date Activated Date Inactivated Comments 01/26/2016 11:31 AM 01/26/2016 2:30 PM Care Teams Dip Filler Relationship Specialty Start Date End Date Carmela Sweeney MD [address] [place] [address] PCP - General 05/24/10
--- OUTSIDE RECORDS SUMMARY | 2023-08-16 11:55 | XMS_ITS | Clinical Summary ---
Author Organization [employer] [facility] Address [place], [place] [address] Care Team Providers Care Hide Inspector And Sorter Name Role Phone Mike Costello MD Primary Care Provider Allergies No known active allergies Medications Medication Sig Dispensed Refills Start Date End Date Status apixaban (ELIQUIS) 5 mg tablet Take 1 tablet by mouth 2 times daily. Patient is unsure of exact dose. 0 09/22/2019 Active budesonide (PULMICORT RESPULES) 0.5 mg/2 mL neb suspensionIndication s:Chronic pansinusitis USE 2 ML(0.5 MG) VIA NEBULIZER EVERY DAY 60 mL 5 10/19/2022 Active carvediloL (COREG) 3.125 mg tabletIndications:Pa roxysmal atrial fibrillation (HC),Ventricular tachycardia (HC) TAKE 1 TABLET(3.125 MG) BY MOUTH TWICE DAILY WITH MEALS 180 Tablet 3 11/29/2022 Active sildenafil citrate (VIAGRA) 100 mg tabletIndications:Er ectile dysfunction, unspecified erectile dysfunction type Take 1 Tablet (100 mg) by mouth once daily if needed for Erectile Dysfunction. Take 30min to 4 hours before sexual activity. Max 100mg/24hr. 15 Tablet 12 12/01/2022 Active tolterodine (DETROL LA) 4 mg Extended-Release capsuleIndications:O veractive bladder TAKE 1 CAPSULE(4 MG) BY MOUTH EVERY DAY 90 Capsule 1 03/12/2023 Active clindamycin 1% (CLEOCIN-T) 1 % lotion Apply 60 mL topically to affected area(s) two times daily. 06/27/2023 Active Active Problems Problem Noted Date Diagnosed Date Chronic systolic congestive heart failure 2023 Paroxysmal atrial fibrillation 07/10/2023 Hypertriglyceridemia 07/10/2023 Benign essential HTN 02/22/2023 PAF (paroxysmal atrial fibrillation) 02/21/2019 NSVT (nonsustained ventricular tachycardia) 04/2019 Hyperlipidemia, mixed 02/04/2015 Prediabetes 02/04/2015 Overweight 02/04/2015 Chronic rhinitis 04/18/2007 Unspecified nasal polyp 04/18/2007 BPH (benign prostatic hyperplasia) Resolved Problems Problem Noted Date Diagnosed Date Resolved Date Non-ischemic cardiomyopathy 02/21/2019 10/19/2021 Overview: - 01/2017 [place]: EF 30% - 03/2017 [place]: EF 40-45% - 12/06/18 Echo at [facility]: EF 45% Routine general medical exam ination at a health care facility 03/29/2020 Overview: Lipids - 04/12/95 cholesterol 183, LDL 111 Dexa- none Colon - 2000 Thyroid- none PSA - 09/16/99 - 0.3 Hep B-none Tetanus-1995 Diabetic-no Encounters Date Type Department Care Team Description 08/16/2023 Nurse Triage [facility] [address] [place] [address] Sofía Bailey PA heart rate 08/16/2023 Nurse Triage [facility] [address] [place] [address] Mike Costello MD Fast Heartbeat 08/16/2023 Telephone [facility] [place] [facility] [place] [address] [facility] [address] [place] [address] Elvin Modi MD Error-please disregard 07/10/2023 2:00 PM CDT Office Visit [facility] [address] [place] [phone] Elvin Modi MD Follow Up (Yearly follow up Paroxysmal atrial fibrillation ) 07/10/2023 Travel 06/02/2023 Refill [facility] [address] [place] [address] Mike Costello MD Refill Request (Tolterodine) from Last 3 Months Immunizations Name Administration Dates Next Due AMB Influenza, IIV3 (Age >=3 years)(Flu Clinic Only) 11/29/2010 AMB Influenza, IIV4 PF (=>6 mos Flulaval,Fluzone Fluarix)(Flu Clinic Only) 11/11/2019,12/12/2016 COVID-19 vaccine (Moderna 100mcg/0.5mL) PF, MDV 05/03/2020 COVID-19 vaccine (Moderna Arian kyler 50mcg/0.25mL) PF, MDV 05/30/2021 COVID-19 vaccine (MePleaseBio NTech 30mcg/0.3mL) 12YO+ HAO-SUCROSE PF, MDV 10/19/2021 Influenza Virus, Unspecified 11/20/2019 Influenza, High-dose Quadriv alent Inactivated 11/16/2022,11/15/2021 Influenza, IIV3 (Age >=3 years) 02/27/19 13,12/27/2004,12/16/2002,01/06 Influenza, IIV4 11/05/2018, 8,01/03/2016,02/04 Influenza, Inactivated AIIV4 (Age 65+ Years) Preserv Free 12/08/2020 Pneumococcal Conj 20-valent (Prevnar 20) 10/19/2021 Pneumococcal Poly,23-Valent (Pneumovax) 03/29/2020 Td (Age >=7 Years) 02/26/1995 Td, Preservative Free (age > = 7 Years) 04/03/2019 Tdap 07/20/2016,04/19/2007 04/19/2017 Zoster (Shingrix-RZV, recombinant) 01/14/2022, Family History Medical History Relation Name Comments Cancer-prostate Brother d68 Cancer-prostate Father at age 72 Other Mother pancreatic canc er at age 68 Cancer-breast Sister Anesthesia Problem No Family History Cancer-colon No Family History Diabetes No Family History Heart Disease No Family History Relation Name Status Comments Brother Father Mother Sister Social History Tobacco Use Types Packs/Day Years Used Date Smoking Tobacco: Former Cigarettes 0.5 10 0 04/19/1982 - 04/19/1992 Smokeless Tobacco: Never Tobacco Cessation:Counseling Given: Yes Alcohol Use Standard Drinks/Week Comments Never 0 (1 standard drink = 0.6 oz pur e alcohol) ` PHQ-2 Answer Date Recorded PHQ-2 TOTAL SCORE 0 02/22/2023 Social Connections Answer Date Recorded Frequency of Communication with Friends and Fami ly 0 02/22/2023 Financial Resource Strain Answer Date R ecorded Difficulty of Paying Living Expenses 3 02/22/2023 Difficulty of Paying Living Expenses Not on file 02/22/2023 Food Insecurity Answer Date Recorded Worried About Running Out of Food in the Last Ye ar 1 02/22/2023 Transportation Needs Answer Date Record ed Lack of Transportation (Medical) 1 02/22/2023 Housing Stability Answer Date Recorded Unable to Pay for Housing in the Last Year 1 02/22/2023 Sex and Gender Information Value Date Recorded Sex Assigned at Not on file Gender Identity Not on file Sexual Orientation Not on file Obstetrics History Last Filed Vital Signs Vital Sign Reading Time Taken Comments Blood Pressure 128/79 07/10/2023 1:55 PM CDT Pulse 64 07/10/2023 1:55 PM CDT Temperature 36.4 ??C (97.5 ??F) 03/20/2022 1:20 PM CS T Respiratory Rate 16 06/06/2021 9:27 AM CDT Oxygen Saturation 95% 07/10/2023 1:55 PM CDT Inhaled Oxygen Concentration - - Weight 86.6 kg (191 lb) 07/10/2023 1:55 PM CDT Height 173.2 cm (5' 8.19) 02/22/2023 3:00 PM CS T Body Mass Index 28.88 02/22/2023 3:00 PM FACILITIES PAINTER Plan of Treatment Upcoming Encounters Date Type Department Care Team (Late st Contact Info) Description 11/23/2023 8:15 AM CDT Orders Only [facility] [address] [place] [address] Lab, [place] 11/30/2023 8:15 AM CDT Office Visit [facility] [address] [place] [address] Javon Chakraborty MD [address] [place] [address] Health Maintenance Due Date Last Done Comments COVID-19 vaccine series (2022- season) 2023 11/16/2022, 10/19/2021, 05/30/2021, Additional history exists Influenza for age 65+ 10/21/2023 11/16/2022 , 11/15/2021, 12/08/2020, Additional history exists BMI (ht and wt on same day) for age 18+ 02/23/2024 02/22/2023, 10/19/2021, 08/20/2020, Additional history exists Depression screening for age 12+ 02/23/2024 02/22/2023, 10/19/2021, 03/29/2020, Additional history exists Medicare Wellness for age 65+ 02/23/2024, 10/19/2021, 03/29/2020 Fecal testing non-DNA (FIT,FOBT,iFOBT) for age 45-75 02/27/2024 02/26/2023, 01/04/2021, 12/02/2019 Lipids for age 45-75 02/23/2028 02/22/2023, 10/19/2021, 03/29/2020, Additional history exists Tetanus booster 04/03/2029 04/03/2019, 06/02/2016, 04/19/2007, Additional history exists Hepatitis C screening for ag e 18-79 Completed 02/04/2015 Tdap Completed 07/20/2016, 04/19/2007 Pneumococcal series for age 65+ Completed , 03/29/2020 AAA screening age 65-74 Completed 11/01/2021 Zoster (shingles) series for age 50+ Completed 01/14/2022, 11/15/2021 Medical Devices Implanted Type Area Curtain Inspector Device Identifier Shelf Expiration Date Model / Serial / Lot Stent Sinus 8mm Propel Contour Bioabsorb - [id number] Implanted:Qty: 2 on 04/22/2019 by Rogerio Kong MD at [facility] l: [employer]ose [employer] 01/29/2020 [id number]# / / [id number] Stent Ent Reg Steroid-Releas ing Propel Bioabsorb - [id number] Implanted:Qty: 1 on 04/22/2019 by Rogerio Kong MD at [facility] l: [employer]ose [employer] 03/14/2020 [id number]# / / [id number] Stent Ent Reg Steroid-Releas ing Propel Bioabsorb - [id number] Implanted:Qty: 1 on 04/22/2019 by Rogerio Kong MD at [facility] l: Nose [employer] 08/27/2020 [id number]# / / [id number] Sinuva Sinus Implant Implanted:Qty: 2 on 12/04/2019 by Rogerio Kong MD at [facility] l: Nose 12/18/2020 [id number] / / [id number] Procedures Procedure Name Priority Date/Time Associated Diagnosis Comments OCCULT BLOOD IFOBT STOOL Routine 02/26/2023 3:12 PM FACILITIES PAINTER Screening for colon cancer LIPID PANEL W REFLEX MEASURED LDL Routine 02/22/2023 3:37 PM FACILITIES PAINTER Hyperlipidemia, mixed US AORTA Routine 11/01/2021 9:01 AM CDT Screening for AAA (abdominal aortic aneurysm) ANTI HCV Routine 02/04/2015 9:03 AM FACILITIES PAINTER Need for hepatitis C screening test from Last 3 Months or Most Recently Relevant to Health Maintenance Results * OCCULT BLOOD IFOBT STOOL (02/26/2023 3:12 PM FACILITIES PAINTER) STOOL BLOOD ,IFOBT Negative Negative 02/28/2023 3:36 PM FACILITIES PAINTER [facility] Stool STOOL SPECIMEN / Unknown Non-Blood / Unknown 02/26/2023 3:12 PM FACILITIES PAINTER 02/28/2023 3:13 PM FACILITIES PAINTER Mike Costello MD [facility]AT[facility] [address] [place] [address], * (ABNORMAL) LIPID PANEL W REFLEX MEASURED LDL (02/22/2023 3:37 PM FACILITIES PAINTER) CHOLESTEROL,TOTAL 206(H) 100 - 199 mg/dL 02/23/2023 1:50 PM FACILITIES PAINTER [facility] Comment: Cholesterol, Total Reference Ranges Desirable <200 mg/dL Borderline 200-239 mg/dL High >=240 mg/dL TRIGLYCERIDES 246(H) <150 mg/dL 02/23/2023 1:50 PM FACILITIES PAINTER [facility] HDL CHOLESTEROL 52 >40 mg/dL 1:50 PM FACILITIES PAINTER [facility] NON-HDL CHOLESTEROL 154(H) <145 mg/dl 02/23/2023 1:50 PM FACILITIES PAINTER [facility] CHOL/HDL RATIO 3.96 <4.50 02/23/2023 1:50 PM FACILITIES PAINTER [facility] LDL CHOLESTEROL 105 <=130 mg/dL 02/23/2023 1:50 PM FACILITIES PAINTER [facility] VLDL CHOLESTEROL 49(H) <=30 mg/dL 02/23/2023 1:50 PM FACILITIES PAINTER [facility] PROVIDER ORDERED STATUS RANDOM 02/23/2023 1:50 PM FACILITIES PAINTER [facility] Blood BLOOD SPECIMEN / Unknown Venipuncture / Unknown 02/22/2023 3:37 PM FACILITIES PAINTER 02/22/2023 3:38 PM FACILITIES PAINTER Mike Costello MD [facility] [address] [place] [address], [place] * US AORTA (11/01/2021 9:01 AM CDT) Anatomical Region Laterality Modality Abdomen, AORTA Ultrasound 11/01/2021 1:57 PM CDT Narrative 11/01/2021 1:57 PM CDT For Patients: ??As a result of the Century Cures Act, medical imaging exams and procedure reports are released immediately into your electronic medical record. ??You may view this report before your referring provider. ??If you have questions, please contact your health care provider. Examination: US abdominal aorta Indication: Abdominal aortic aneurysm screening. Technique: Rodrigez scale and color Doppler images of the aorta and common iliac arteries are obtained. Comparison: None Findings: Proximal aorta: 2.7 x 2.8 cm Mid aorta: 2.1 x 2.4 cm Distal aorta: 2.1 x 2.4 cm Right common iliac artery: 1.4 x 1.3 cm Left common iliac artery: 1.7 x 1.5 cm Impression: No abdominal aortic aneurysm. Dictated by Boogie Martinez MD @ Nov 01 2021 ??1:57PM (Electronically Signed) ?? Procedure Note Boogie Martinez MD - 11/01/2021 For Patients: As a result of the Cures Act, medical imagingexams and procedure reports are released immediately into your electronicmedical record. You may view this report before your referring provider.If you have questions, please contact your health care provider. Examination: US abdominal aorta Indication: Abdominal aortic aneurysm screening. Technique: Rodrigez scale and color Doppler images of the aorta and common iliac arteriesare obtained. Comparison: None Findings: Proximal aorta: 2.7 x 2.8 cm Mid aorta: 2.1 x 2.4 cm Distal aorta: 2.1 x 2.4 cm Right common iliac artery: 1.4 x 1.3 cm Left common iliac artery: 1.7 x 1.5 cm Impression: No abdominal aortic aneurysm. Dictated by Boogie Martinez MD @ Nov 01 2021 1:57PM (Electronically Signed) Mike Costello MD [place] * ANTI HCV [61085.2] (02/04/2015 9:03 AM FACILITIES PAINTER) HEPATITIS C ANTIBODY Non-Reacti ve Non-Reacti ve 02/04/2015 4:58 PM [facility] Blood specimen (specimen) BLOOD SPECIMEN / Unknown Venipuncture / Unknown 02/04/2015 9:03 AM FACILITIES PAINTER 02/04/2015 9:03 AM FACILITIES PAINTER Narrative [facility] - 02/04/2015 4:58 PM FACILITIES PAINTER Antibodies to HCV not detected; does not exclude the possibility of exposure to HCV. Mike Costello MD SEND OUTS [facility] [address] [place] [address], [place] from Last 3 Months or Most Recently Relevant to Health Maintenance Advance Directives * Full Code (Latest Code Status on File) Date Activated Date Inactivated Comments 12/04/2019 8:09 AM 12/04/2019 1:33 PM Question Answer Comments Code Status Discussion: Discussed * Full Code Date Activated Date Inactivated Comments 04/22/2019 11:55 AM 04/22/2019 5:50 PM * Full Code Date Activated Date Inactivated Comments 02/21/2019 9:43 AM 02/21/2019 5:25 PM Care Teams Hide Inspector And Sorter Relationship Specialty Start Date End Date Mike Costello MD [address] [place] [address] PCP - General 03/26/07
[2023-08-16 12:06] LABS: Chloride* 106 mmol/L (96-114); Potassium* 4.1 mmol/L (3.6-5.1); Sodium* 138 mmol/L (135-149)
[2023-08-16 12:09] LABS: Anion Gap 7 mEq/L (7-15); Blood Urea Nitrogen* 18 mg/dL (7-30); Carbon Dioxide* 25 mmol/L (20-32); Creatinine* 0.9 mg/dL (0.5-1.5); Estimated Glomerular Filt Rate 93 ml/min; Glucose* 134 mg/dL (60-115)
[2023-08-16 12:10] LABS: Calcium* 8.6 mg/dL (8.4-10.6)
[2023-08-16] MEDS: 0.9 % SODIUM CHLORIDE 1000 ml 1,000 ML IV (12:20)
[2023-08-16] MEDS: PROPOFOL 10 MG/ML INJ 200 MG IVP (12:28)
[2023-08-16 12:33] LABS: Troponin I* < 0.01 ng/mL (0.01-0.04)
--- NOTE | 2023-08-16 12:51 | ED.NURSE ---
This RN witnessed waste of 12 mL Propofol with CROW Estrada @ 1251 hours
== END 2023-08-16 13:40 | disposition home or self-care (01) ==
PROVIDERS: Emergency Provider Emergency Medicine; PCP Family Medicine
DX: I48.91 Unspecified atrial fibrillation (principal)
CPT/HCPCS: 92960; 36415; 80048; 84484; 85025; 93005; 99284; 99285; J2704; J7030

== ENCOUNTER 2023-08-24 09:07 | Emergency (ER) | payer MEDICARE, BC, SELFPAY ==
[2023-08-24] VITALS (34 sets, daily range): BP systolic 142; BP diastolic 94; PULSE 82; RESP 6–18; TEMP 36.8; O2SAT 92–98; BMI 28.7
--- NOTE | 2023-08-24 09:34 | CRLHL7_ITS ---
For Patients: As a result of the Cures Act, medical imaging exams and procedure reports are released immediately into your electronic medical record. You may view this report before your referring provider. If you have questions, please contact your health care provider. INDICATION: Palpitations TECHNIQUE: 1 view chest radiograph COMPARISON: None. FINDINGS: Devices: None. Lung volumes are good. No focal or diffuse opacities. No pleural effusion. No pneumothorax. Heart size is normal for lung volumes and technique. IMPRESSION: Normal chest radiograph. Dictated by Ruth Herring MD @ 08/24/2023 10:30:55 AM (Electronically Signed)
--- NOTE | 2023-08-24 09:35 | ED_ITS ---
HPI - Arrhythmia/Palpitations General Chief Complaint: Arrhythmia/Palpitations <Devon Johnson MD - Last Filed: 08/24/23 12:09> Stated Complaint: A-Fib <Devon Johnson MD - Last Filed: 08/24/23 12:09> Time Seen by Provider: 08/24/23 09:27 <Devon Johnson MD - Last Filed: 08/24/23 12:09> History of Present Illness HPI narrative: Patient is a 68-year-old gentleman who presents with irregular heartbeat. Patient has long history of atrial fibrillation but is done well with previous cardioversions. Patient had a cardioversion approximately a week ago and has been in normal sinus rhythm since that time. Patient is compliant with his Eliquis. He also takes carvedilol. No medication changes were made at the time of his discharge a week ago. He has been feeling well until this morning when he developed irregular heartbeat while exercising. Patient has had no chest pain no shortness a breath orthopnea no PND no peripheral edema no nausea no vomiting. Patient is discouraged that he has gone back and atrial fibrillation which is confirmed by his EKG today. Very much like to be cardioverted back to sinus rhythm again. <Devon Johnson MD - Last Filed: 08/24/23 12:09> Related Data Home Medications: Home Medications ?Medication ?Instructions ?Recorded ?Confirmed apixaban 5 mg tablet 5 mg PO BID 10/05/22 08/16/23 budesonide 0.5 mg/2 mL suspension 0.5 mg inhalation QDAY 10/05/22 10/05/22 for nebulization carvedilol 3.125 mg tablet 3.125 mg PO BID 10/05/22 08/16/23 ketoconazole 2 % shampoo 1 applic topical .2-3 x week PRN 10/05/22 10/05/22 metronidazole 1 % topical cream 1 applic topical QDAY PRN 10/05/22 10/05/22 tolterodine 4 mg capsule,extended 4 mg PO DAILY 10/05/22 08/16/23 release 24 hr Previous Rx's ?Medication ?Instructions ?Recorded metronidazole 0.75 % topical cream 1 applic topical QDAY #45 grams 10/05/22 finasteride 5 mg tablet 2.5 mg (1/2 x 5 mg) PO DAILY #90 05/01/23 tabs clindamycin phosphate 1 % topical 1 applic topical DAILY #60 mL 06/14/23 solution <Devon Johnson MD - Last Filed: 08/24/23 12:09> Allergies/Adverse Reactions: Allergies Allergy/AdvReac Type Severity Reaction Status Date / Time No Known Drug Allergies Allergy Verified 08/16/23 10:37 <Devon Johnson MD - Last Filed: 08/24/23 12:09> Review of Systems Status of ROS: Reports: 10 or more systems reviewed and unremarkable except as noted in History and below <Devon Johnson MD - Last Filed: 08/24/23 12:09> [facility] Medical History: Medical History Atrial fibrillation ?I48.91 - Unspecified atrial fibrillation (ICD-10) <Devon Johnson MD - Last Filed: 08/24/23 12:09> Surgical History: Surgical History History of medial meniscus repair of right knee (05/31/01) ?Z98.890 - Other specified postprocedural states (ICD-10) History of sinus surgery (09/06/10) ?Z98.890 - Other specified postprocedural states (ICD-10) H/O nasal polypectomy (09/06/10) ?Z98.890 - Other specified postprocedural states (ICD-10) ?Z87.09 - Personal history of other diseases of the respiratory system (ICD- 10) History of nasal septoplasty (09/06/10) ?Z98.890 - Other specified postprocedural states (ICD-10) H/O arthroscopy of left knee (10/22/08) ?Z98.890 - Other specified postprocedural states (ICD-10) <Devon Johnson MD - Last Filed: 08/24/23 12:09> Social History: Social History Smoking Status: Former smoker How often do you have a drink containing alcohol: never How often do you have six or more drinks on one occasion: Never AUDIT-C Alcohol total score: 0 Non-prescribed substance use: denies use service: Yes <Devon Johnson MD - Last Filed: 08/24/23 12:09> Exam Narrative: Exam Narrative: EXAM GENERAL: Patient appears comfortable and well. EYES: No scleral icterus. ENT: Tympanic membranes and oropharynx normal. THYROID: no thyroid nodules or thyromegaly. LYMPH: No supraclavicular or cervical lymphadenopathy. SKIN: Visible skin seen during exam normal or with benign process only. EXT: No dependent lower extremity pedal edema. HEART: Irregularly irregular no rubs clicks gallops or murmurs. LUNGS: Clear to auscultation bilaterally with no crackles or wheezes. ABD: Soft, non tender, non distended. PSYCH: Good eye contact, speech is not pressured. <Devon Johnson MD - Last Filed: 08/24/23 12:09> Const: Vital Signs, click to edit/add: Vital Signs - 24 hr 08/24/23 09:15 08/24/23 09:19 08/24/23 09:20 Pulse Rate [Left P ulse Oximeter] 82 Respiratory Rate 18 Blood Pressure [Le ft Upper Arm] 142/94 H Pulse Oximetry 96 97 97 [facility] 08/24/23 09:30 08/24/23 09:32 08/24/23 09:40 Pulse Rate [Left P ulse Oximeter] Respiratory Rate Blood Pressure [Le ft Upper Arm] Pulse Oximetry 96 97 96 [facility] 08/24/23 09:47 08/24/23 09:50 08/24/23 09:57 Pulse Rate [Left P ulse Oximeter] Respiratory Rate 10 L Blood Pressure [Le ft Upper Arm] Pulse Oximetry 96 96 96 [facility] 08/24/23 10:00 08/24/23 10:02 08/24/23 10:10 Pulse Rate [Left P ulse Oximeter] Respiratory Rate 15 14 14 Blood Pressure [Le ft Upper Arm] Pulse Oximetry 96 95 96 [facility] 08/24/23 10:16 08/24/23 10:20 08/24/23 10:30 Pulse Rate [Left P ulse Oximeter] Respiratory Rate 14 17 6 L Blood Pressure [Le ft Upper Arm] Pulse Oximetry 95 96 96 Oxygen Delivery Me [facility]od 08/24/23 10:32 08/24/23 10:40 08/24/23 10:46 Pulse Rate [Left P ulse Oximeter] Respiratory Rate 14 13 Blood Pressure [Le ft Upper Arm] Pulse Oximetry 95 96 95 Oxygen Delivery Me thod 08/24/23 10:50 08/24/23 11:00 08/24/23 11:01 Pulse Rate [Left P ulse Oximeter] Respiratory Rate Blood Pressure [Le ft Upper Arm] Pulse Oximetry 97 97 97 Oxygen Delivery Me [facility] 08/24/23 11:10 08/24/23 11:19 08/24/23 11:20 Pulse Rate [Left P ulse Oximeter] Respiratory Rate 15 14 16 Blood Pressure [Le ft Upper Arm] Pulse Oximetry 98 92 93 Oxygen Delivery Me [facility] 08/24/23 11:22 08/24/23 11:26 08/24/23 11:30 Pulse Rate [Left P ulse Oximeter] Respiratory Rate 15 15 9 L Blood Pressure [Le ft Upper Arm] Pulse Oximetry 97 96 98 Oxygen Delivery Me thod 08/24/23 11:31 08/24/23 11:36 08/24/23 11:40 Pulse Rate [Left P ulse Oximeter] Respiratory Rate Blood Pressure [Le ft Upper Arm] Pulse Oximetry 98 95 94 Oxygen Delivery Me thod 08/24/23 11:42 08/24/23 11:47 08/24/23 11:53 Pulse Rate [Left P ulse Oximeter] Respiratory Rate Blood Pressure [Le ft Upper Arm] Pulse Oximetry 95 96 97 Oxygen Delivery Me thod <Devon Johnson MD - Last Filed: 08/24/23 12:09> Vital Signs, click to edit/add: Vital Signs - 24 hr 08/24/23 09:15 08/24/23 09:19 08/24/23 09:20 Pulse Rate [Left P ulse Oximeter] 82 Respiratory Rate 18 Blood Pressure [Le ft Upper Arm] 142/94 H Pulse Oximetry 96 97 97 Oxygen Delivery Me thod Room Air 08/24/23 09:30 08/24/23 09:32 08/24/23 09:40 Pulse Rate [Left P ulse Oximeter] Respiratory Rate Blood Pressure [Le ft Upper Arm] Pulse Oximetry 96 97 96 Oxygen Delivery Me thod 08/24/23 09:47 08/24/23 09:50 08/24/23 09:57 Pulse Rate [Left P ulse Oximeter] Respiratory Rate 10 L Blood Pressure [Le ft Upper Arm] Pulse Oximetry 96 96 96 Oxygen Delivery Me thod 08/24/23 10:00 08/24/23 10:02 08/24/23 10:10 Pulse Rate [Left P ulse Oximeter] Respiratory Rate 15 14 14 Blood Pressure [Le ft Upper Arm] Pulse Oximetry 96 95 96 Oxygen Delivery Me thod 08/24/23 10:16 08/24/23 10:20 08/24/23 10:30 Pulse Rate [Left P ulse Oximeter] Respiratory Rate 14 17 6 L Blood Pressure [Le ft Upper Arm] Pulse Oximetry 95 96 96 Oxygen Delivery Me thod 08/24/23 10:32 08/24/23 10:40 08/24/23 10:46 Pulse Rate [Left P ulse Oximeter] Respiratory Rate 14 13 Blood Pressure [Le ft Upper Arm] Pulse Oximetry 95 96 95 Oxygen Delivery Me thod 08/24/23 10:50 08/24/23 11:00 08/24/23 11:01 Pulse Rate [Left P ulse Oximeter] Respiratory Rate Blood Pressure [Le ft Upper Arm] Pulse Oximetry 97 97 97 Oxygen Delivery Me thod 08/24/23 11:10 08/24/23 11:19 08/24/23 11:20 Pulse Rate [Left P ulse Oximeter] Respiratory Rate 15 14 16 Blood Pressure [Le ft Upper Arm] Pulse Oximetry 98 92 93 Oxygen Delivery Me thod 08/24/23 11:22 08/24/23 11:26 08/24/23 11:30 Pulse Rate [Left P ulse Oximeter] Respiratory Rate 15 15 9 L Blood Pressure [Le ft Upper Arm] Pulse Oximetry 97 96 98 Oxygen Delivery Me thod 08/24/23 11:31 08/24/23 11:36 08/24/23 11:40 Pulse Rate [Left P ulse Oximeter] Respiratory Rate Blood Pressure [Le ft Upper Arm] Pulse Oximetry 98 95 94 Oxygen Delivery Me thod 08/24/23 11:42 08/24/23 11:47 08/24/23 11:53 Pulse Rate [Left P ulse Oximeter] Respiratory Rate Blood Pressure [Le ft Upper Arm] Pulse Oximetry 95 96 97 Oxygen Delivery Me thod <Michelle Meredith MD - Last Filed: 08/24/23 11:22> Course Course ED Course: Patient seen and examined. EKG reviewed. We are contacting both Cardiology and Anesthesia to try to move forward with cardioversion. In the meantime troponin CBC basic metabolic panel portable chest x-ray pending. <Devon Johnson MD - Last Filed: 08/24/23 12:09> Consultations Consultation #1: Spoke with Cardiology who were supportive of repeat cardioversion. No change in medications at this time. 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 <Devon Johnson MD - Last Filed: 08/24/23 12:09> Vital Signs Vital signs: Initial Vital Signs Pulse Rate 82 08/24/23 09:15 Pulse Rhythm Irregularly Irregular 08/24/23 09:15 Pulse Strength 3+ Normal 08/24/23 09:15 Respiratory Rate 18 08/24/23 09:15 Blood Pressure 142/94 H 08/24/23 09:15 Blood Pressure Mean 110 H 08/24/23 09:15 Blood Pressure Position Semi-Fowlers 08/24/23 09:15 Pulse Oximetry 96 08/24/23 09:15 Oxygen Delivery Method Room Air 08/24/23 09:15 Vital Signs Pulse Rate 82 08/24/23 09:15 Respiratory Rate 18 08/24/23 09:15 Blood Pressure 142/94 H 08/24/23 09:15 Pulse Oximetry 96 08/24/23 09:15 Oxygen Delivery Method Room Air 08/24/23 09:15 Pulse Rate 82 08/24/23 09:15 Respiratory Rate 9 L 08/24/23 11:30 Blood Pressure 142/94 H 08/24/23 09:15 Pulse Oximetry 97 08/24/23 11:53 Oxygen Delivery Method Room Air 08/24/23 09:15 <Devon Johnson MD - Last Filed: 08/24/23 12:09> Initial Vital Signs Pulse Rate 82 08/24/23 09:15 Pulse Rhythm Irregularly Irregular 08/24/23 09:15 Pulse Strength 3+ Normal 08/24/23 09:15 Respiratory Rate 18 08/24/23 09:15 Blood Pressure 142/94 H 08/24/23 09:15 Blood Pressure Mean 110 H 08/24/23 09:15 Blood Pressure Position Semi-Fowlers 08/24/23 09:15 Pulse Oximetry 96 08/24/23 09:15 Oxygen Delivery Method Room Air 08/24/23 09:15 Vital Signs Pulse Rate 82 08/24/23 09:15 Respiratory Rate 18 08/24/23 09:15 Blood Pressure 142/94 H 08/24/23 09:15 Pulse Oximetry 96 08/24/23 09:15 Oxygen Delivery Method Room Air 08/24/23 09:15 Pulse Rate 82 08/24/23 09:15 Respiratory Rate 9 L 08/24/23 11:30 Blood Pressure 142/94 H 08/24/23 09:15 Pulse Oximetry 97 08/24/23 11:53 Oxygen Delivery Method Room Air 08/24/23 09:15 <Michelle Meredith MD - Last Filed: 08/24/23 11:22> MDM - Arrhythmia/Palpitations MDM Narrative Medical decision making narrative: Patient is a 68-year-old gentleman who presents with atrial fibrillation. He had been cardioverted approximately a week ago. He was exercising today any went back in atrial fibrillation which was confirmed on EKG. Patient presented the emergency room where he otherwise is feeling fine. His labs were normal and I did visit with Cardiology in the did recommend repeat cardioversion. Patient had a slice of toast an hour before. Were able to sedate him with propofol in the emergency room safely and cardiovert him after explaining the risks and benefits of the procedure with 200 joules synchronized. He did resume normal sinus rhythm. Of note he has been on anticoagulation with no interruption for several years. I did again visit with Cardiology and they do not recommend any changes to his medication. He will continue his carvedilol and his Eliquis and follow up with his previously scheduled cardiology appointment next week. <Devon Johnson MD - Last Filed: 08/24/23 12:09> Lab Data Labs: Lab Results 08/24/23 08/24/23 Range/Units 09:28 09:58 WBC 5.90 (4.50-11.00) K/uL RBC 5.29 (4.30-5.90) m/uL Hgb 15.7 (13.5-17.5) gm/dL Hct 46.9 (37.0-53.0) % MCV 89 (80-100) fL MCH 30 (26-34) pg MCHC 34 (32-36) gm/dL RDW Coeff of Jeremy 11.9 (11.5-15.5) % Plt Count 220 (140-440) K/uL Neut % (Auto) 60.1 (42.0-72.0) % Lymph % (Auto) 22.5 (20-44) % Power % (Auto) 9.7 (0.0-11.0) % Eos % (Auto) 5.8 (0.0-7.0) % Baso % (Auto) 0.5 (0.0-3.0) % Neut # (Auto) 3.55 (1.7-7.0) K/uL Lymph # (Auto) 1.33 (0.90-2.90) K/uL Power # (Auto) 0.60 (0.00-0.90) K/UL Eos # (Auto) 0.34 (0.00-0.50) K/uL Baso # (Auto) 0.03 (0.00-0.30) K/uL Abs Immat Gran (auto) 0.08 (0.00-0.30) K/uL Imm/Tot Granulo (auto) 1.4 % Sodium 138 (135-149) mmol/L Potassium 4.2 (3.6-5.1) mmol/L Chloride 106 (96-114) mmol/L Carbon Dioxide 26 (20-32) mmol/L Anion Gap 6 L (7-15) mEq/L BUN 19 (7-30) mg/dL Creatinine 1.0 (0.5-1.5) mg/dL Estimated Creat Clear 73.00 Estimated GFR 82 ml/min Glucose 123 H (60-115) mg/dL Calcium 8.7 (8.4-10.6) mg/dL Troponin I 0.01 (0.01-0.04) ng/mL POC Troponin I 0.00 L (0.01-0.04) ng/ml <Devon Johnson MD - Last Filed: 08/24/23 12:09> Lab Results 08/24/23 08/24/23 Range/Units 09:28 09:58 WBC 5.90 (4.50-11.00) K/uL RBC 5.29 (4.30-5.90) m/uL Hgb 15.7 (13.5-17.5) gm/dL Hct 46.9 (37.0-53.0) % MCV 89 (80-100) fL MCH 30 (26-34) pg MCHC 34 (32-36) gm/dL RDW Coeff of Jeremy 11.9 (11.5-15.5) % Plt Count 220 (140-440) K/uL Neut % (Auto) 60.1 (42.0-72.0) % Lymph % (Auto) 22.5 (20-44) % Power % (Auto) 9.7 (0.0-11.0) % Eos % (Auto) 5.8 (0.0-7.0) % Baso % (Auto) 0.5 (0.0-3.0) % Neut # (Auto) 3.55 (1.7-7.0) K/uL Lymph # (Auto) 1.33 (0.90-2.90) K/uL Power # (Auto) 0.60 (0.00-0.90) K/UL Eos # (Auto) 0.34 (0.00-0.50) K/uL Baso # (Auto) 0.03 (0.00-0.30) K/uL Abs Immat Gran (auto) 0.08 (0.00-0.30) K/uL Imm/Tot Granulo (auto) 1.4 % Sodium 138 (135-149) mmol/L Potassium 4.2 (3.6-5.1) mmol/L Chloride 106 (96-114) mmol/L Carbon Dioxide 26 (20-32) mmol/L Anion Gap 6 L (7-15) mEq/L BUN 19 (7-30) mg/dL Creatinine 1.0 (0.5-1.5) mg/dL Estimated Creat Clear 73.00 Estimated GFR 82 ml/min Glucose 123 H (60-115) mg/dL Calcium 8.7 (8.4-10.6) mg/dL Troponin I 0.01 (0.01-0.04) ng/mL POC Troponin I 0.00 L (0.01-0.04) ng/ml <Michelle Meredith MD - Last Filed: 08/24/23 11:22> Discharge Plan Discharge Clinical Impression: Atrial fibrillation <Devon Johnson MD - Last Filed: 08/24/23 12:09> Patient Disposition: Home, Self-Care <Devon Johnson MD - Last Filed: 08/24/23 12:09> Condition: Stable <Devon Johnson MD - Last Filed: 08/24/23 12:09> Instructions: A-fib (Atrial Fibrillation) (ED) <Devon Johnson MD - Last Filed: 08/24/23 12:09> Additional Instructions: Continue current medications Follow-up with your doctor as previously scheduled Report any change in symptoms. <Devon Johnson MD - Last Filed: 08/24/23 12:09> Activity Level: No Restrictions <Devon Johnson MD - Last Filed: 08/24/23 12:09> No Restrictions <Michelle Meredith MD - Last Filed: 08/24/23 11:22> Discharge Diet: Regular <Devon Johnson MD - Last Filed: 08/24/23 12:09> Regular <Michelle Meredith MD - Last Filed: 08/24/23 11:22> Prescriptions: No Action apixaban 5 mg tablet 5 mg PO BID budesonide 0.5 mg/2 mL suspension for nebulization 0.5 mg inhalation QDAY ketoconazole 2 % shampoo 1 applic topical .2-3 x week PRN metronidazole 1 % cream 1 applic topical QDAY PRN metronidazole 0.75 % cream 1 applic topical QDAY Qty: 45 1RF carvedilol 3.125 mg tablet 3.125 mg PO BID tolterodine 4 mg capsule,extended release 24hr 4 mg PO DAILY finasteride 5 mg tablet 2.5 mg PO DAILY Qty: 90 0RF clindamycin phosphate 1 % solution 1 applic topical DAILY Qty: 60 0RF <Devon Johsnon MD - Last Filed: 08/24/23 12:09> Follow Up/Referrals: Mike Costello MD [Primary Care Provider] - <Devon Johnson MD - Last Filed: 08/24/23 12:09> Stand Alone [facility]: [facility] Inst[facility] <Devon Johnson MD - Last Filed: 08/24/23 12:09> Procedures Additional Procedures Procedure name: Moderate sedation <Michelle Meredith MD - Last Filed: 08/24/23 11:22> Pre procedure diagnosis: Atrial fibrillation <Michelle Meredith MD - Last Filed: 08/24/23 11:22> Post procedure diagnosis: Atrial fibrillation <Michelle Meredith MD - Last Filed: 08/24/23 11:22> Written consent by: patient <Michelle Meredith MD - Last Filed: 08/24/23 11:22> Site marking: not applicable <Michelle Meredith MD - Last Filed: 08/24/23 11:22> Verification/time out: correct patient <Michelle Meredith MD - Last Filed: 08/24/23 11:22> Estimated blood loss (if any): none <Michelle Meredith MD - Last Filed: 08/24/23 11:22> Conclusion: patient tolerated procedure <Michelle Meredith MD - Last Filed: 08/24/23 11:22> Additional comments: I provided anesthesia for this patient's cardioversion. Patient has similar procedure on 08/16/2023. No history of reaction to anesthesia no medical allergies. Risks (including fatal arrhythmias, intubation and ) and benefits were discussed with the patient and consent was sign. Time-out was done and correct patient identified. 90 mL of IV propofol given with good moderate sedation. Cardioversion per Dr. Johnson. <Michelle Meredith MD - Last Filed: 08/24/23 11:22>
[2023-08-24 10:07] LABS: Basophils Absolute Auto 0.03 K/uL (0.00-0.30); Basophils Percent Auto 0.5 % (0.0-3.0); Eosinophils Absolute Auto 0.34 K/uL (0.00-0.50); Eosinophils Percent Auto 5.8 % (0.0-7.0); Hematocrit 46.9 % (37.0-53.0); Hemoglobin* 15.7 gm/dL (13.5-17.5); Immature Granulocytes Abs Auto 0.08 K/uL (0.00-0.30); Immature Granulocytes Pct Auto 1.4 %; Lymphocytes Absolute Auto 1.33 K/uL (0.90-2.90); Lymphocytes Percent Auto 22.5 % (20-44); Mean Corpuscular HGB Conc 34 gm/dL (32-36); Mean Corpuscular Hemoglobin 30 pg (26-34); Mean Corpuscular Volume 89 fL (80-100); Monocytes Percent Auto 9.7 % (0.0-11.0); Neutrophils Absolute Auto 3.55 K/uL (1.7-7.0); Neutrophils Percent Auto 60.1 % (42.0-72.0); Platelet Count* 220 K/uL (140-440); RDW Coefficient of Variation % 11.9 % (11.5-15.5); Red Blood Count 5.29 m/uL (4.30-5.90)
--- OUTSIDE RECORDS SUMMARY | 2023-08-24 10:07 | XMS_ITS | Continuity of Care Document ---
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 It does not include entries that were removed or entered in error. Problem Status Onset Date Problem Type Date of Resolution Comments Source AF- Atrial Fibrillation ([facility] [id number]) Active Condition [facility] Cardiomyopathy Active Condition 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 Medication Details Route Status Patient Instructions Prescription Expires Prescription Number Last Dispense Date Ordering Provider Order Date Order Qty Source APIXABAN 5MG TAB APIXABAN 5MG TAB Active: Susp TAKE ONE TABLET BY MOUTH TWICE A DAY TO PREVENT STROKES TO PREVENT STROKES Aug 22, 2023 180 Aug 22, 2024 [id number] G Oct 07, 2023 PAWEL BRAVO [facility] ORAL SUSPEND ED 08/22/2024 [id number] Casey BRAVO [facility] [address] [facility] APIXABAN 5MG TAB APIXABAN 5MG TAB Disconti nued TAKE ONE TABLET BY MOUTH TWICE A DAY TO PREVENT STROKES TO PREVENT STROKES July 02, 2023 180 Sep 30, 2023 [id number] F July 19, 2023 PAWEL BRAVO [facility] ORAL DISCONT INUED 09/30/2023 [id number] Casey BRAVO [facility] [address] [facility] APIXABAN 5MG TAB APIXABAN 5MG TAB Disconti nued TAKE ONE TABLET BY MOUTH TWICE A DAY TO PREVENT STROKES TO PREVENT STROKES Jul 21, 2022 180 Jul 22, 2023 [id number] E Apr 30, 2023 PAWEL BRAVO [facility] ORAL DISCONT INUED 07/22/2023 [id number] Casey BRAVO I[facility] [address] [facility] CARVEDILOL 6.25MG TAB CARVEDIL OL 6.25MG TAB Non-VA TAKE ONE-HALF TABLET BY MOUTH TWICE A DAY Apr 30, 2019 Non-VA Document ed by: FAIZAN VEE Document ed at: [facility] ORAL ACTIVE HAPAK,SOP HIE M 2019 [facility] CHOLECALCIF CASEY 25MCG (1,000UNIT) TAB CHOLECAL CIFEROL 25MCG (1,000UN IT) TAB Non-VA TAKE TWO TABLETS BY MOUTH EVERY MORNING Apr 17, 2017 Non-VA Document ed by: FAIZAN VEE Document ed at: [facility] ORAL ACTIVE [place],SOP HIE M 2017 [facility] DICLOFENAC NA 1% GEL,TOP DICLOFEN AC NA 1% GEL,TOP Active APPLY 4 GRAMS TOPICALL Y FOUR TIMES A DAY NEEDED TO AFFECTED AREA FOR PAIN TO AFFECTED AREA FOR PAIN Aug 22, 2023 100 Aug 22, 2024 [id number] Aug 22, 2023 SABAS LAW,[facility] TOPICA L ACTIVE 08/22/2024 [id number] SHAWN CHAVARRIA [address] [facility] MULTIVITAMI N/MINERALS SENIOR FORMULA TAB MULTIVIT YING/MIN ERALS SENIOR FORMULA TAB Non-VA TAKE TWO TABLETS BY MOUTH EVERY DAY Sep 15, 2016 Non-VA Document ed by: CHACE GAN TTARIE C Document ed at: [facility] ORAL ACTIVE FILI GAN THEJaz C 2016 [facility] Immunizations Combined list of available immunizations from the Department of Defense and Veterans Affairs facilities. 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 COVID-19 (MODERNA), MRNA, LNP-S, PF, 50 MCG/0.5 ML (AGES 12+ YEARS) [address] [facility] INFLUENZA, HIGH-DOSE, QUADRIVALENT, PF [address] [facility] ZOSTER RECOMBINANT [address] [facility] INFLUENZA, HIGH-DOSE, QUADRIVALENT, PF [address] [facility] ZOSTER RECOMBINANT [address] [facility] COVID-19 (PFIZER), MRNA, LNP-S, PF, 30 MCG/0.3 ML DOSE, HAO-SUCROSE (AGES 12+ YEARS) [address] [facility] PNEUMOCOCCAL CONJUGATE PCV20, POLYSACCHARID E [id number] CONJUGATE, ADJUVANT, PF [address] [facility] COVID-19 (MODERNA), MRNA, LNP-S, PF, 100 MCG/0.5ML DOSE OR 50 MCG/0.25ML DOSE [address] [facility] COVID-19 (MODERNA), MRNA, LNP-S, PF, 100 MCG/0.5ML DOSE OR 50 MCG/0.25ML DOSE [address] [facility] INFLUENZA, ADJUVANTED, QUADRIVALENT, PF [address] [facility] INFLUENZA, UNSPECIFIED FORMULATION [address] [facility] [place] COVID-19 (MODERNA), MRNA, LNP-S, PF, 100 MCG/0.5 ML DOSE 2 2020 207 complet ed MOD: [id number]; 1 [facility] COVID-19 (MODERNA), MRNA, LNP-S, PF, 100 MCG/0.5 ML DOSE 1 2020 207 complet ed MOD; [id number]; 1 [facility] PNEUMOCOCCAL POLYSACCHARID E [id number] [address] [facility] INFLUENZA, UNSPECIFIED FORMULATION 2019 88 complet ed [facility] INFLUENZA, SPLIT VIRUS, QUADRIVALENT, PF [address] [facility] TD (ADULT), 5 LF TETANUS TOXOID, PRESERVATIVE FREE, ADSORBED [address] [facility] INFLUENZA, SEASONAL, INJECTABLE 2018 141 complet ed [facility] INFLUENZA, SPLIT VIRUS, QUADRIVALENT, PF [address] [facility] INFLUENZA, INJECTABLE, QUADRIVALENT, PRESERVATIVE FREE 2017 150 complet ed [facility] Administe red by: [facility] Clinician (NPI=Not Provided) . Partner 3 Lot#: [id number] Mfr: [employer] [facility] INFLUENZA, SPLIT VIRUS, QUADRIVALENT, PF [address] [facility] INFLUENZA, SEASONAL, INJECTABLE 2016 141 complet ed [facility] INFLUENZA, SEASONAL, INJECTABLE [address] [facility] TDAP 2016 115 complet ed [employer]. [id number], 08/23/18 [facility] INFLUENZA, SPLIT VIRUS, QUADRIVALENT, PF [address] [facility] INFLUENZA, SEASONAL, INJECTABLE [address] [facility] INFLUENZA, SPLIT VIRUS, QUADRIVALENT, PF [address] [facility] INFLUENZA, SPLIT VIRUS, TRIVALENT, PRESERVATIVE [address] [facility] INFLUENZA, SPLIT VIRUS, TRIVALENT, PRESERVATIVE [address] [facility] TDAP [address] [facility] INFLUENZA, SPLIT VIRUS, TRIVALENT, PRESERVATIVE [address] [facility] INFLUENZA, SPLIT VIRUS, TRIVALENT, PRESERVATIVE [address] [facility] INFLUENZA, SPLIT VIRUS, TRIVALENT, PRESERVATIVE [address] [facility] Results Combined list of recent chemistry, hematology and other laboratory results from Department of Defense and Veterans Affairs, ranging from 15 months to all on record, depending upon the facility. Order Name Results Value Reference Range Date Interpretation Specimen Comments Source CBC LEUKOCYTES [#/VOLUME] IN BLOOD BY AUTOMATED COUNT 7.29 10*3/u L 4.0 - 11.0 08/21 Specimen Type: BLOOD No comment entered. Ordering Provider: SHAWN CALVO Report Released Date/Time: Aug 22, 2023 09:36 AM Reporting Lab: [facility] [address] Performing Lab: [facility] [address] [facility] CBC ERYTHROCYTE S [#/VOLUME] IN BLOOD BY AUTOMATED COUNT 4.84 10*6/u L 4.6 - 6.2 08/21 Specimen Type: BLOOD No comment entered. Ordering Provider: SHAWN CALVO Report Released Date/Time: Aug 22, 2023 09:36 AM Reporting Lab: [facility] [address] Performing Lab: [facility] [address] [facility] CBC HEMOGLOBIN [MASS/VOLUM E] IN BLOOD 14.5 g/dL 13.5 - 17.9 08/21 Specimen Type: BLOOD No comment entered. Ordering Provider: SHAWN CALVO Report Released Date/Time: Aug 22, 2023 09:36 AM Reporting Lab: [facility] [address] Performing Lab: [facility] [address] [place] [facility] CBC HEMATOCRIT [VOLUME FRACTION] OF BLOOD BY AUTOMATED COUNT 42.3 41 - 54 08/21 Specimen Type: BLOOD No comment entered. Ordering Provider: SHAWN CALVO Report Released Date/Time: Aug 22, 2023 09:36 AM Reporting Lab: [facility] [address] Performing Lab: [facility] [address] [facility] CBC MCV [ENTITIC VOLUME] BY AUTOMATED COUNT 87.4 fL 80 - 100 08/21 Specimen Type: BLOOD No comment entered. Ordering Provider: SHAWN CALVO Report Released Date/Time: Aug 22, 2023 09:36 AM Reporting Lab: [facility] [address] Performing Lab: [facility] [address] [place] [facility] CBC MCH [ENTITIC MASS] BY AUTOMATED COUNT 30.0 pg 27 - 33 08/21 Specimen Type: BLOOD No comment entered. Ordering Provider: SHAWN CALVO Report Released Date/Time: Aug 22, 2023 09:36 AM Reporting Lab: [facility] [address] Performing Lab: [facility] [address] [place] [facility] CBC MCHC [MASS/VOLUM E] BY AUTOMATED COUNT 34.3 g/dL 32.0 - 37.5 08/21 Specimen Type: BLOOD No comment entered. Ordering Provider: SHAWN CALVO Report Released Date/Time: Aug 22, 2023 09:36 AM Reporting Lab: [facility] [address] Performing Lab: [facility] [address] [place] [facility] CBC PLATELETS [#/VOLUME] IN BLOOD BY AUTOMATED COUNT 214 10*3/u L 150 - 400 08/21 Specimen Type: BLOOD No comment entered. Ordering Provider: SHAWN CALVO Report Released Date/Time: Aug 22, 2023 09:36 AM Reporting Lab: [facility] [address] Performing Lab: [facility] [address] [place] [facility] CBC PLATELET MEAN VOLUME [ENTITIC VOLUME] IN BLOOD BY AUTOMATED COUNT 9.7 fL 7.4 - 10.4 08/21 Specimen Type: BLOOD No comment entered. Ordering Provider: SHAWN CALVO Report Released Date/Time: Aug 22, 2023 09:36 AM Reporting Lab: [facility] [address] Performing Lab: [facility] [address] [place] [facility] CBC ERYTHROCYTE DISTRIBUTIO N WIDTH [RATIO] BY AUTOMATED COUNT 11.9 11.5 - 14.5 08/21 Specimen Type: BLOOD No comment entered. Ordering Provider: SHAWN CALVO Report Released Date/Time: Aug 22, 2023 09:36 AM Reporting Lab: [facility] [address] Performing Lab: [facility] [address] [place] [facility] COMPREHEN SIVE METABOLIC PANEL+MG CREATININE [MASS/VOLUM E] IN SERUM OR PLASMA 0.8 mg/dL 0.7 - 1.2 08/21 Specimen Type: PLASMA No comment entered. Ordering Provider: SHAWN CALVO Report Released Date/Time: Aug 22, 2023 09:36 AM Reporting Lab: [facility] [address] Performing Lab: [facility] [address] [place] [facility] COMPREHEN SIVE METABOLIC PANEL+MG UREA NITROGEN [MASS/VOLUM E] IN SERUM OR PLASMA 17 mg/dL 8 - 26 08/21 Specimen Type: PLASMA No comment entered. Ordering Provider: SHAWN CALVO Report Released Date/Time: Aug 22, 2023 09:36 AM Reporting Lab: [facility] [address] Performing Lab: [facility] [address] [place] [facility] COMPREHEN SIVE METABOLIC PANEL+MG GLUCOSE [MASS/VOLUM E] IN SERUM OR PLASMA 91 mg/dL 70 - 100 08/21 Specimen Type: PLASMA No comment entered. Ordering Provider: SHAWN CALVO Report Released Date/Time: Aug 22, 2023 09:36 AM Reporting Lab: [facility] [address] Performing Lab: [facility] [address] [place] [facility] COMPREHEN SIVE METABOLIC PANEL+MG SODIUM [MOLES/VOLU ME] IN SERUM OR PLASMA 138 mmol/L 136 - 145 08/21 Specimen Type: PLASMA No comment entered. Ordering Provider: SHAWN CALVO Report Released Date/Time: Aug 22, 2023 09:36 AM Reporting Lab: [facility] [address] Performing Lab: [facility] [address] [place] [facility] COMPREHEN SIVE METABOLIC PANEL+MG POTASSIUM [MOLES/VOLU ME] IN SERUM OR PLASMA 4.2 mmol/L 3.5 - 5.1 08/21 Specimen Type: PLASMA No comment entered. Ordering Provider: SHAWN CALVO Report Released Date/Time: Aug 22, 2023 09:36 AM Reporting Lab: [facility] [address] Performing Lab: [facility] [address] [place] [facility] COMPREHEN SIVE METABOLIC PANEL+MG CHLORIDE [MOLES/VOLU ME] IN SERUM OR PLASMA 105 mmol/L 98 - 107 08/21 Specimen Type: PLASMA No comment entered. Ordering Provider: SHAWN CALVO Report Released Date/Time: Aug 22, 2023 09:36 AM Reporting Lab: [facility] [address] Performing Lab: [facility] [address] [place] [facility] COMPREHEN SIVE METABOLIC PANEL+MG CARBON DIOXIDE, TOTAL [MOLES/VOLU ME] IN SERUM OR PLASMA 25 mmol/L 22 - 29 08/21 Specimen Type: PLASMA No comment entered. Ordering Provider: SHAWN CALVO Report Released Date/Time: Aug 22, 2023 09:36 AM Reporting Lab: [facility] [address] Performing Lab: [facility] [address] [place] [facility] COMPREHEN SIVE METABOLIC PANEL+MG CALCIUM [MASS/VOLUM E] IN SERUM OR PLASMA 9.0 mg/dL 8.4 - 10.2 08/21 Specimen Type: PLASMA No comment entered. Ordering Provider: SHAWN CALVO Report Released Date/Time: Aug 22, 2023 09:36 AM Reporting Lab: [facility] [address] Performing Lab: [facility] [address] [place] [facility] COMPREHEN SIVE METABOLIC PANEL+MG PROTEIN [MASS/VOLUM E] IN SERUM OR PLASMA 6.5 g/dL 6.0 - 8.3 08/21 Specimen Type: PLASMA No comment entered. Ordering Provider: SHAWN CALVO Report Released Date/Time: Aug 22, 2023 09:36 AM Reporting Lab: [facility] [address] Performing Lab: [facility] [address] [place] [facility] COMPREHEN SIVE METABOLIC PANEL+MG ALBUMIN [MASS/VOLUM E] IN SERUM OR PLASMA 4.0 g/dL 3.5 - 5.2 08/21 Specimen Type: PLASMA No comment entered. Ordering Provider: SHAWN CALVO Report Released Date/Time: Aug 22, 2023 09:36 AM Reporting Lab: [facility] [address] Performing Lab: [facility] [address] [place] [facility] COMPREHEN SIVE METABOLIC PANEL+MG BILIRUBIN.T OTAL [MASS/VOLUM E] IN SERUM OR PLASMA 0.6 mg/dL 0.2 - 1.2 08/21 Specimen Type: PLASMA No comment entered. Ordering Provider: SHAWN CALVO Report Released Date/Time: Aug 22, 2023 09:36 AM Reporting Lab: [facility] [address] Performing Lab: [facility] [address] [place] [facility] COMPREHEN SIVE METABOLIC PANEL+MG MAGNESIUM [MASS/VOLUM E] IN SERUM OR PLASMA 2.0 mg/dL 1.6 - 2.6 08/21 Specimen Type: PLASMA No comment entered. Ordering Provider: SHAWN CALVO Report Released Date/Time: Aug 22, 2023 09:36 AM Reporting Lab: [facility] [address] Performing Lab: [facility] [address] [place] [facility] COMPREHEN SIVE METABOLIC PANEL+MG ANION GAP IN SERUM OR PLASMA 8 mmol/L 5 - 15 08/21 Specimen Type: PLASMA No comment entered. Ordering Provider: SHAWN CALVO Report Released Date/Time: Aug 22, 2023 09:36 AM Reporting Lab: [facility] [address] Performing Lab: [facility] [address] [place] [facility] COMPREHEN SIVE METABOLIC PANEL+MG ALKALINE PHOSPHATASE [ENZYMATIC ACTIVITY/VO LUME] IN SERUM OR PLASMA 85 U/L 40 - 150 08/21 Specimen Type: PLASMA No comment entered. Ordering Provider: SHAWN CALVO Report Released Date/Time: Aug 22, 2023 09:36 AM Reporting Lab: [facility] [address] Performing Lab: [facility] [address] [place] [facility] COMPREHEN SIVE METABOLIC PANEL+MG ALANINE AMINOTRANSF ERASE [ENZYMATIC ACTIVITY/VO LUME] IN SERUM OR PLASMA 23 U/L <55 - 55 08/21 Specimen Type: PLASMA No comment entered. Ordering Provider: SHAWN CALVO Report Released Date/Time: Aug 22, 2023 09:36 AM Reporting Lab: [facility] [address] Performing Lab: [facility] [address] [place] [facility] COMPREHEN SIVE METABOLIC PANEL+MG ASPARTATE AMINOTRANSF ERASE [ENZYMATIC ACTIVITY/VO LUME] IN SERUM OR PLASMA 26 U/L <34 - 34 08/21 Specimen Type: PLASMA No comment entered. Ordering Provider: SHAWN CALVO Report Released Date/Time: Aug 22, 2023 09:36 AM Reporting Lab: [facility] [address] Performing Lab: [facility] [address] [place] [facility] COMPREHEN SIVE METABOLIC PANEL+MG GLOMERULAR FILTRATION RATE/1.73 SQ M.PREDICTED [VOLUME RATE/AREA] IN SERUM, PLASMA OR BLOOD BY CREATININE- BASED FORMULA (CKD-EPI 2020) >90 60 08/21 Specimen Type: PLASMA No comment entered. Ordering Provider: SHAWN CALVO Report Released Date/Time: Aug 22, 2023 09:36 AM Reporting Lab: [facility] [address] Performing Lab: [facility] [address] [place] [facility] ALT/SGPT ALANINE AMINOTRANSF ERASE [ENZYMATIC ACTIVITY/VO LUME] IN SERUM OR PLASMA 25 U/L <55 - 55 01/10 Specimen Type: PLASMA No comment entered. Ordering Provider: RASTA WILLIAM Report Released Date/Time: Dec 11, 2022 09:10 AM Reporting Lab: [facility] [address] Performing Lab: [facility] [address] [place] [facility] AST/SGOT ASPARTATE AMINOTRANSF ERASE [ENZYMATIC ACTIVITY/VO LUME] IN SERUM OR PLASMA 24 U/L <34 - 34 01/10 Specimen Type: PLASMA No comment entered. Ordering Provider: RASTA WILLIAM Report Released Date/Time: Dec 11, 2022 09:10 AM Reporting Lab: [facility] [address] Performing Lab: [facility] [address] [place] [facility] CBC LEUKOCYTES [#/VOLUME] IN BLOOD BY AUTOMATED COUNT 6.78 10*3/u L 4.0 - 11.0 01/10 Specimen Type: BLOOD No comment entered. Ordering Provider: RASTA WILLIAM Report Released Date/Time: Dec 11, 2022 09:10 AM Reporting Lab: [facility] [address] Performing Lab: [place] [address] [place] [facility] CBC ERYTHROCYTE S [#/VOLUME] IN BLOOD BY AUTOMATED COUNT 4.99 10*6/u L 4.6 - 6.2 01/10 Specimen Type: BLOOD No comment entered. Ordering Provider: RASTA WILLIAM Report Released Date/Time: Dec 11, 2022 09:10 AM Reporting Lab: [facility] [address] Performing Lab: [facility] [address] [place] [facility] CBC HEMOGLOBIN [MASS/VOLUM E] IN BLOOD 15.0 g/dL 13.5 - 17.9 01/10 Specimen Type: BLOOD No comment entered. Ordering Provider: RASTA WILLIAM Report Released Date/Time: Dec 11, 2022 09:10 AM Reporting Lab: [facility] [address] Performing Lab: [facility] [address] [place] [facility] CBC HEMATOCRIT [VOLUME FRACTION] OF BLOOD BY AUTOMATED COUNT 44.0 41 - 54 01/10 Specimen Type: BLOOD No comment entered. Ordering Provider: RASTA WILLIAM Report Released Date/Time: Dec 11, 2022 09:10 AM Reporting Lab: [facility] [address] Performing Lab: [facility] [address] [place] [facility] CBC MCV [ENTITIC VOLUME] BY AUTOMATED COUNT 88.2 fL 80 - 100 01/10 Specimen Type: BLOOD No comment entered. Ordering Provider: RASTA WILLIAM Report Released Date/Time: Dec 11, 2022 09:10 AM Reporting Lab: [facility] [address] Performing Lab: [facility] [address] [place] [facility] CBC MCH [ENTITIC MASS] BY AUTOMATED COUNT 30.1 pg 27 - 33 01/10 Specimen Type: BLOOD No comment entered. Ordering Provider: RASTA WILLIAM Report Released Date/Time: Dec 11, 2022 09:10 AM Reporting Lab: [facility] [address] Performing Lab: [facility] [address] [place] [facility] CBC MCHC [MASS/VOLUM E] BY AUTOMATED COUNT 34.1 g/dL 32.0 - 37.5 01/10 Specimen Type: BLOOD No comment entered. Ordering Provider: RASTA WILLIAM Report Released Date/Time: Dec 11, 2022 09:10 AM Reporting Lab: [facility] [address] Performing Lab: [facility] [address] [place] [facility] CBC PLATELETS [#/VOLUME] IN BLOOD BY AUTOMATED COUNT 209 10*3/u L 150 - 400 01/10 Specimen Type: BLOOD No comment entered. Ordering Provider: RASTA WILLIAM Report Released Date/Time: Dec 11, 2022 09:10 AM Reporting Lab: [facility] [address] Performing Lab: [facility] [address] [place] [facility] CBC PLATELET MEAN VOLUME [ENTITIC VOLUME] IN BLOOD BY AUTOMATED COUNT 9.7 fL 7.4 - 10.4 01/10 Specimen Type: BLOOD No comment entered. Ordering Provider: RASTA WILLIAM Report Released Date/Time: Dec 11, 2022 09:10 AM Reporting Lab: [facility] [address] Performing Lab: [facility] [address] [place] [facility] CBC ERYTHROCYTE DISTRIBUTIO N WIDTH [RATIO] BY AUTOMATED COUNT 11.9 11.5 - 14.5 01/10 Specimen Type: BLOOD No comment entered. Ordering Provider: RASTA WILLIAM Report Released Date/Time: Dec 11, 2022 09:10 AM Reporting Lab: [facility] [address] Performing Lab: [facility] [address] [place] [facility] CREATININ E(INCLUDE S EGFR) CREATININE [MASS/VOLUM E] IN SERUM OR PLASMA 0.9 mg/dL 0.7 - 1.2 01/10 Specimen Type: PLASMA No comment entered. Ordering Provider: RASTA WILLIAM Report Released Date/Time: Dec 11, 2022 09:10 AM Reporting Lab: [facility] [address] Performing Lab: [facility] [address] [place] [facility] CREATININ E(INCLUDE S EGFR) GLOMERULAR FILTRATION RATE/1.73 SQ M.PREDICTED [VOLUME RATE/AREA] IN SERUM, PLASMA OR BLOOD BY CREATININE- BASED FORMULA (CKD-EPI 2020) >90 60 01/10 Specimen Type: PLASMA No comment entered. Ordering Provider: RASTA WILLIAM Report Released Date/Time: Dec 11, 2022 09:10 AM Reporting Lab: [facility] [address] Performing Lab: [facility] [address] [place] [facility] ALT/SGPT ALANINE AMINOTRANSF ERASE [ENZYMATIC ACTIVITY/VO LUME] IN SERUM OR PLASMA 31 U/L <55 - 55 11/10 Specimen Type: PLASMA No comment entered. Ordering Provider: SALVATORE BRAVO Report Released Date/Time: July 04, 2021 01:00 PM Reporting Lab: [facility] [phone] Performing Lab: [facility] [address] [place] [facility] AST/SGOT ASPARTATE AMINOTRANSF ERASE [ENZYMATIC ACTIVITY/VO LUME] IN SERUM OR PLASMA 22 U/L <34 - 34 11/10 Specimen Type: PLASMA No comment entered. Ordering Provider: SALVATORE BRAVO Report Released Date/Time: July 04, 2021 01:00 PM Reporting Lab: [facility] [address] Performing Lab: [facility] [address] [place] [facility] CBC LEUKOCYTES [#/VOLUME] IN BLOOD BY AUTOMATED COUNT 7.45 10*3/u L 4.0 - 11.0 11/10 Specimen Type: BLOOD No comment entered. Ordering Provider: SALVATORE BRAVO Report Released Date/Time: July 04, 2021 01:00 PM Reporting Lab: [facility] [phone] Performing Lab: [facility] [address] [place] [facility] CBC ERYTHROCYTE S [#/VOLUME] IN BLOOD BY AUTOMATED COUNT 4.96 10*6/u L 4.6 - 6.2 11/10 Specimen Type: BLOOD No comment entered. Ordering Provider: SALVATORE BRAVO Report Released Date/Time: July 04, 2021 01:00 PM Reporting Lab: [facility] [phone] Performing Lab: [facility] [address] [place] [facility] CBC HEMOGLOBIN [MASS/VOLUM E] IN BLOOD 15.1 g/dL 13.5 - 17.9 11/10 Specimen Type: BLOOD No comment entered. Ordering Provider: SALVATORE BRAVO Report Released Date/Time: July 04, 2021 01:00 PM Reporting Lab: [facility] [address] Performing Lab: [facility] [address] [place] [facility] CBC HEMATOCRIT [VOLUME FRACTION] OF BLOOD BY AUTOMATED COUNT 44.1 41 - 54 11/10 Specimen Type: BLOOD No comment entered. Ordering Provider: SALVATORE BRAVO Report Released Date/Time: July 04, 2021 01:00 PM Reporting Lab: [facility] [address] Performing Lab: [facility] [address] [place] [facility] CBC MCV [ENTITIC VOLUME] BY AUTOMATED COUNT 88.9 fL 80 - 100 11/10 Specimen Type: BLOOD No comment entered. Ordering Provider: SALVATORE BRAVO Report Released Date/Time: July 04, 2021 01:00 PM Reporting Lab: [facility] [address] Performing Lab: [facility] [address] [place] [facility] CBC MCH [ENTITIC MASS] BY AUTOMATED COUNT 30.4 pg 27 - 33 11/10 Specimen Type: BLOOD No comment entered. Ordering Provider: SALVATORE BRAVO Report Released Date/Time: July 04, 2021 01:00 PM Reporting Lab: [facility] [address] Performing Lab: [facility] [address] [place] [facility] CBC MCHC [MASS/VOLUM E] BY AUTOMATED COUNT 34.2 g/dL 32.0 - 37.5 11/10 Specimen Type: BLOOD No comment entered. Ordering Provider: SALVATORE BRAVO Report Released Date/Time: July 04, 2021 01:00 PM Reporting Lab: [facility] [address] Performing Lab: [facility] [address] [place] [facility] CBC PLATELETS [#/VOLUME] IN BLOOD BY AUTOMATED COUNT 220 10*3/u L 150 - 400 11/10 Specimen Type: BLOOD No comment entered. Ordering Provider: SALVATORE BRAVO Report Released Date/Time: July 04, 2021 01:00 PM Reporting Lab: [facility] [address] Performing Lab: [facility] [address] [place] [facility] CBC PLATELET MEAN VOLUME [ENTITIC VOLUME] IN BLOOD BY AUTOMATED COUNT 9.1 fL 7.4 - 10.4 11/10 Specimen Type: BLOOD No comment entered. Ordering Provider: SALVATORE BRAVO Report Released Date/Time: July 04, 2021 01:00 PM Reporting Lab: [facility] [address] Performing Lab: [facility] [address] [place] [facility] CBC ERYTHROCYTE DISTRIBUTIO N WIDTH [RATIO] BY AUTOMATED COUNT 12.1 11.5 - 14.5 11/10 Specimen Type: BLOOD No comment entered. Ordering Provider: SALVATORE BRAVO Report Released Date/Time: July 04, 2021 01:00 PM Reporting Lab: [facility] [address] Performing Lab: [facility] [address] [place] [facility] CREATININ E(INCLUDE S EGFR) CREATININE [MASS/VOLUM E] IN SERUM OR PLASMA 0.9 mg/dL .7 - 1.2 11/10 Specimen Type: PLASMA No comment entered. Ordering Provider: SALVATORE BRAVO Report Released Date/Time: July 04, 2021 01:00 PM Reporting Lab: [facility] [address] Performing Lab: [facility] [address] [place] [facility] CREATININ E(INCLUDE S EGFR) GLOMERULAR FILTRATION RATE/1.73 SQ M.PREDICTED [VOLUME RATE/AREA] IN SERUM, PLASMA OR BLOOD BY CREATININE- BASED FORMULA (CKD-EPI) >90 60 11/10 Specimen Type: PLASMA No comment entered. Ordering Provider: SALVATORE BRAVO Report Released Date/Time: July 04, 2021 01:00 PM Reporting Lab: [facility] [address] Performing Lab: [facility] [address] [place] [facility] Vital Signs Combined list of inpatient and outpatient Vital Signs from Department of Defense and Veterans Affairs, ranging from 12 months to all on record, depending upon the facility. Vital Sign Value Date Comments Source Encounters Combined list of: 1) Encounters from Department of Veterans Affairs facilities going back up to thelast 18 months. 2) Encounters from the Department of Defense facilities going back up to 280 months. Location Location Details Encounter Type Encounter Number Reason For Visit Attending Provider ADM Date DC Date Status Disposition Source [place] [facility] Outpatient Encounter [id number] 11/16 [facility] [place] [facility] Outpatient Encounter [id number] 12[facility]11 [facility] [place] [facility] Outpatient Encounter [id number] 02/02 [facility] [place] [facility] QNHP OL DIG ASSMT&MGMT 5-10 [id number] Diagnos is: ICD-10- CM Z79.01 longterm (curren t) use of anticoa gulants
CHRISTOPHER BRAVO 07/01 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
VAN ALIREZABE NJAMIN E 08/21 [facility] Social History Combined list of available smoking, tobacco, and other social history from Department of Defense and Veterans Affairs facilities. Social History Type Response Date Comment Sourc e Tobacco smoking status NHIS VA-TOBACCO FORMER USER 08/22/2023 [place] [facility] of [facility] History of tobacco use DC-TOBACCO FORMER USER 06/23/2020 [facility] History of tobacco use DC-TOBACCO QUIT 1 5 YRS OR MORE 04/30/2019 [facility] History of tobacco use DC-TOBACCO FORMER USER 04/23/2018 [facility] History of tobacco use INPT NO TOBACCO U SE IN LAST 30 DAYS 04/17/2017 [facility] History of tobacco use FORMER TOBACCO US ER 7Y OR GREATER 07/19/2016 [facility] Advance Directives List of completed, amended, or rescinded Advance Directives on record at Department of Veterans Affairs facilities. An actual copy of the Directive is not included. Date Advance Directive Provider Source 04/19/2017 ADVANCE DIRECTIVE DISCUSSION LUPE SINGH ROLE J [facility]
--- OUTSIDE RECORDS SUMMARY | 2023-08-24 10:07 | XMS_ITS | Encounter Summary ---
Author Name [facility] [facility] Address [address] [place] [address] Care Team Providers Care Special Education Associate Name Role Phone MARIBEL BROWN Primary Care [...] MEDIC ARE SUPPL EMENT Jul 20, 2018 [id number] Ngoc CARTAGENA PATIENT [place] PREFERRED PROVIDER ORGANIZAT ION (PPO) ALEYDAE DWIGHT AND ROSAM[place]IA May 20, 2017 [id number] Ngoc CARTAGENA PATIENT [place] MEDICARE SUPPLEMEN [place] MEDIC ARE SUPPL EMENT Jul 20, 2018 [id number] Ngoc CARTAGENA PATIENT [place] - W[place] SPECIAL [place] May 25, 2016 [facility] [id number] Ngoc CARTAGENA PATIENT MEDCO ([employer]) PRESCRIPT ION [facility]TRS & JNER RET May 20, 2017 [id number] [phone] Ngoc CARTAGENA PATIENT MEDICARE (WNR) MEDICARE (M) PART A Jul 20, 2018 PART A [id number] [phone] Ngoc CARTAGENA PATIENT MEDICARE (WNR) MEDICARE (M) PART B Jul 20, 2018 PART B [id number] [phone] Ngoc CARTAGENA PATIENT Selected Encounter This section includes the information on record at [place] for the Encounter. Date/Time Encounter Type Encounter Description Reason Provider Source July 02, 2023 02:26 PM QNHP OL DIG ASSMT&MGMT 5-10 [facility] ICD-10-CM Z79.01 residential (current) use of anticoagulants PAWEL BRAVO [facility] Encounter Template Text not used by [place] Assessments - Encounter Diagnoses This section includes the primary and secondary diagnoses documented for the Encounter. Date/Time Primary/Secondary Diagnosis Diagnosis Name Provider Source July 02, 2023 02:37 PM PRIMARY residential (current) use of anticoagulants [facility] July 02, 2023 02:37 PM SECONDARY Encounter for therapeutic drug level monitoring [facility] July 02, 2023 02:37 PM SECONDARY Unspecified atrial fibrillation [facility] Plan of Treatment: Future Appointments (+ 6 months) and Future Tests (+/- 45 days) The Plan of Treatment section includes future care activities for the patient from all [place] treatmentfacilities. This section includes future appointments and future orders which are active, pending or scheduled. Future Appointments This section includes appointments that were scheduled to occur 6 months from the date of the Encounter, up to a maximum of 20 appointments. The data comes from all [place] treatment facilities. Appointment Date/Time Appointment Type Appointme nt Facility Name Aug 22, 2023 09:00 AM AMBULATORY - [facility] Social History: Smoking Status (Most current) and Tobacco Use (All prior to encounter date) This section includes the most current, and the historical, smoking and tobacco- related health factors from the [place] facility where the Encounter took place. Current Smoking Status This section includes the most current smoking, or tobacco-related health factor, from the [place] facility where the Encounter took place. Date/Time Current Smoking Status Comment Facil ity June 23, 2020 11:00 AM VA-TOBACCO FORMER USER [facility] Tobacco Use History This section includes a history of the smoking, or tobacco-related health factors, that were collected on or before the date of the Encounter. The data comes from the [place] facility where the Encounter took place. Date/Time Smoking Status/Tobacco Use Comment F acility June 23, 2020 11:00 AM VA-TOBACCO QUIT 15 YRS OR MORE [facility] Apr 30, 2019 08:26 AM VA-TOBACCO FORMER USER [facility] Apr 30, 2019 08:26 AM VA-TOBACCO QUIT 15 YRS OR MORE [facility] Apr 23, 2018 11:35 AM VA-TOBACCO FORMER USER [facility] Apr 23, 2018 11:35 AM VA-TOBACCO QUIT 15 YRS OR MORE [facility] Apr 17, 2017 06:26 AM INPT NO TOBACCO USE IN LAST 30 D AYS [facility] July 19, 2016 04:34 PM FORMER TOBACCO USER 7Y OR GREATE R [facility] Advance Directives: All historical and current Section Date Range: From patient's date of to the date document was created. This section includes ALL of a patient's completed or amended [place] Advance and Rescinded Directives. The entries below indicate that a directive exists for the patient, but an actual copy is not included with this document. The data comes from all [place] facilities. Date Advance Directives Provider Source Apr 19, 2017 ADVANCE DIRECTIVE DISCUSSION LUPE SINGH ROLE J [facility] Encounter Notes: All associated encounter notes This section contains the clinical notes associated to the Encounter. Date/Time Encounter Note(s) Provider Source July 02, 2023 02:39 PM LETTERS: LOCAL TITLE: FOLLOW UP RESULTS LETTER STANDARD TITLE: LETTERS DATE OF NOTE: JULY 02, 2023@14:39 ENTRY DATE: JULY 02, 2023@14:39:19 AUTHOR: PAWEL BRAVO COSIGNER: URGENCY: STATUS: COMPLETED SUBJECT: anticoag [facility] [address] [place] [address] June RAUL CARTAGENA [address] [facility] [address] Dear Thoreau: We are following up on your anticoagulant [...] will be mailed when due next. Sincerely, [facility] Team Phone number: [phone] -option 1 to schedule or reschedule an appointment -option 2 to refill medications or call the phone number on the bottle -option 3 for all other communication Fax number: [phone] Clinic Hours: Sunday-Sunday, 8:00am to 4:00pm (excluding Federal holidays) PAWEL BRAVO [facility] Clinical Tester Operator Helper, [facility] PAWEL BRAVO [facility] July 02, 2023 02:38 PM ADDENDUM: LOCAL TITLE: Addendum STANDARD TITLE: ADDENDUM DATE OF NOTE: JULY 02, 2023@14:38:10 ENTRY DATE: JULY 02, 2023@14:38:12 AUTHOR: PAWEL BRAVO EXP COSIGNER: URGENCY: STATUS: COMPLETED PCP Please see note above/plan regarding last known appt. Thanks /nubia/ PAWEL BRAVO [facility] Clinical Tester Operator Helper, [facility] Signed: 07/02/2023 14:39 Receipt Acknowledged By: 07/08/2023 [...] 90ds no refills until pt sees a [place] MD, it has been > 2yrs - Pt needs annual DOAC labs at [facility] with PCP visit- please order DOAC Bundle - Pt has not been seen by or spoken to PCP since 01/2021- sending alert to PCP and LTP Time spent: 10 min /nubia/ PAWEL BRAVO [facility] Clinical Tester Operator Helper, [facility] Signed: 07/02/2023 14:37 PAWEL BRAVO [facility] July 02, 2023 02:26 PM PHARMACY OUTPATIEN [...] - Pt needs annual DOAC labs at [facility] with PCP visit- please order DOAC Bundle - Pt has not been seen by or spoken to PCP since 01/2021- sending alert to PCP and LTP Time spent: 10 min /nubia/ PAWEL BRAVO [facility] Clinical Tester Operator Helper, [facility] Signed: 07/02/2023 14:37 07/02/2023 ADDENDUM STATUS: COMPLETED PCP Please see note above/plan regarding last known appt. Thanks /nubia/ PAWEL BRAVO [facility] Clinical Tester Operator Helper, [facility] Signed: 07/02/2023 14:39 Receipt Acknowledged By: 07/08/2023 06:25 /nubia/ SHAWN CALVO MD RESIDENT PHYSICIAN 08/22/2023 ADDENDUM STATUS: COMPLETED Labs ---- Age: 68 Height: 70 in [177.8 cm] (08/22/2023 08:50) Weight: 199 lb [90.26 kg] (08/22/2023 08:50) BMI: 28.6 Collection DT Specimen Test Name Result Units Ref Range 08/22/2023 09:52 PLASMA CREATININE 0.8 mg/dL 0.7 - 1.2 01/10/2023 07:38 PLASMA CREATININE 0.9 mg/dL 0.7 - 1.2 11/10/2021 09:44 PLASMA CREATININE 0.9 mg/dL .7 - 1.2 08/03/2020 07:08 PLASMA CREATININE 0.9 mg/dL 0.7 - 1.2 04/30/2019 08:02 PLASMA CREATININE 0.9 mg/dL 0.7 - 1.2 04/22/2018 09:31 PLASMA CREATININE 0.8 mg/dL .7 - 1.2 04/20/2017 05:30 PLASMA CREATININE 1.0 mg/dL .7 - 1.2 04/19/2017 05:30 PLASMA CREATININE 1.0 mg/dL .7 - 1.2 04/18/2017 05:30 PLASMA CREATININE 1.0 mg/dL .7 - 1.2 03/23/2017 11:42 PLASMA CREATININE 0.9 mg/dL .7 - 1.2 Cockcroft & Gault (Actual body weight) = 95+ mL/min Collection DT Spec WBC HGB HCT PLT MCV 08/22/2023 09:52 BLOOD 7.29 14.5 42.3 214 87.4 01/10/2023 07:38 BLOOD 6.78 15.0 44.0 209 88.2 AST/SGOT: SGOT 26 (08/22/23) ALT/SGPT: SGPT 23 (08/22/23) Pt has been seen by PCP; labs done; fairly stable. Diclofenac gel and APAP for chronic bilateral knee osteoarthirits. RX renewed. /nubia/ PAWEL BRAVO [facility] Clinical Tester Operator Helper, [facility] Signed: 08/22/2023 11:14 PAWEL BRAVO [facility]
--- OUTSIDE RECORDS SUMMARY | 2023-08-24 10:07 | XMS_ITS | Encounter Summary ---
Author Name [facility] ([place] Address [address] [place] [address] Care Team Providers Care Career Discovery Teacher Name Role Phone MARIBEL BROWN Primary Care [...] MEDIC ARE SUPPL EMENT Jul 20, 2018 [id number] [phone] Ngoc OBREGON [place]IENT [place] PREFERRED PROVIDER ORGANIZAT ION (PPO) JOSE QUINTANILLA AND ROSAMARIA May 20, 2017 [id number] [phone] Ngoc OBREGON [place]ARE SUPPLEMEN [place] MEDIC ARE SUPPL EMENT Jul 20, 2018 [id number] [phone] Ngoc OBREGON PATIENT CAMP [place] - [place] SPECIAL CLASS CAMP [place] May 25, 2016 CAMP [place]LA [id number] Ngoc OBREGON PATIENT MEDCO (EXPRESS SCRIPTS) PRESCRIPT ION [facility] May 20, 2017 [id number] [phone] Ngoc OBREGON PATIENT MEDICARE (WNR) MEDICARE (M) PART B Jul 20, 2018 PART B [id number] [phone] Ngoc OBREGON PATIENT MEDICARE (WNR) MEDICARE (M) PART A Jul 20, 2018 PART A [id number] [phone] Ngoc OBREGON PATIENT Selected Encounter This section includes the information on record at [place] for the Encounter. Date/Time Encounter Type Encounter Description Reason Provider Source Aug 22, 2023 09:00 AM OFFICE O/P EST MOD 30 MIN PRIMARY CARE/MEDICINE ICD-10-CM Z79.01 shelter (current) use of anticoagulants ETHAN FLEMING E IHE Encounter Template Text not used by [place] Assessments - Encounter Diagnoses This section includes the primary and secondary diagnoses documented for the Encounter. 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 Aug 22, 2023 09:55 AM SECONDARY Contact with and exposure to other hazardous substances CORINA MASON [facility] Aug 22, 2023 09:55 AM SECONDARY Essential (primary) hypertension Gabby LOWE [facility] Aug 22, 2023 09:55 AM SECONDARY Osteoarthritis of knee, unspecified Gabby LOWE [facility] Aug 22, 2023 09:55 AM SECONDARY Unspecified atrial fibrillation Gabby LOWE [facility] Lab Results: +/- 30 days of the encounter This section includes the Chemistry and Hematology Lab Results on record with [place] for the patient. Radiology Reports and Pathology Reports are provided separately, in subsequent sections. Lab Results This section contains the Chemistry/Hematology Results that were resulted 30 days before or 30 daysafter the date of the Encounter. Date/Time Source Result Type Result - Unit Interpretation Reference Range Comment Aug 22, 2023 09:52 AM [facility] CBC Specimen Type: BLOOD No comment entered. Ordering Provider: Gabby LOWE Report Released Date/Time: Aug 22, 2023 09:36 AM Reporting Lab: [facility] [id number] Performing Lab: [facility] [id number] WBC 7.29 10*3/uL 4.0-11.0 RBC 4.84 10*6/uL 4.6-6.2 HGB 14.5 g/dL 13.5-17.9 HCT 42.3 41-54 MCV 87.4 fL 80-100 MCH 30.0 pg 27-33 MCHC 34.3 g/dL 32.0-37.5 PLT 214 10*3/uL 150-400 MPV 9.7 fL 7.4-10.4 RDW 11.9 11.5-14.5 Aug 22, 2023 09:52 AM [facility] COMPREHENSIVE METABOLIC PANEL+MG Specimen Type: PLASMA No comment entered. Ordering Provider: Gabby LOWE Report Released Date/Time: Aug 22, 2023 09:36 AM Reporting Lab: [facility] [id number] Performing Lab: [facility] [id number] CREATININE 0.8 mg/dL 0.7-1.2 UREA NITROGEN 17 mg/dL 8-26 GLUCOSE 91 mg/dL 70-100 SODIUM 138 mmol/L 136-145 POTASSIUM 4.2 mmol/L 3.5-5.1 CHLORIDE 105 mmol/L 98-107 CO2 25 mmol/L 22-29 CALCIUM 9.0 mg/dL 8.4-10.2 PROTEIN,TOTAL 6.5 g/dL 6.0-8.3 ALBUMIN 4.0 g/dL 3.5-5.2 BILIRUBIN, TOTAL 0.6 mg/dL 0.2-1.2 MAGNESIUM 2.0 mg/dL 1.6-2.6 ANION GAP 8 mmol/L 5-15 ALKALINE PHOSPHATASE 85 U/L 40-150 ALT/SGPT 23 U/L <55 AST/SGOT 26 U/L <34 .CREAT EGFR(CKD-EPI) >90 >60 Vital Signs: All taken on the encounter date This section contains inpatient and outpatient Vital Signs collected on the date of the Encounter. Date/Time Temperature Pulse Blood Pressure Respiratory Rate SP02 Pain Height Weight Body Mass Index Source Aug 22, 2023 09:00 AM 146/84 [facility] Aug 22, 2023 08:50 AM 61 151/90 16 97 6 70 199 29 [facility] Social History: Smoking Status (Most current) and Tobacco Use (All prior to encounter date) This section includes the most current, and the historical, smoking and tobacco- related health factors from the [place] facility where the Encounter took place. Current Smoking Status This section includes the most current smoking, or tobacco-related health factor, from the [place] facility where the Encounter took place. Date/Time Current Smoking Status Comment Facil ity Aug 22, 2023 09:00 AM VA-TOBACCO FORMER USER [facility] Tobacco Use History This section includes a history of the smoking, or tobacco-related health factors, that were collected on or before the date of the Encounter. The data comes from the [place] facility where the Encounter took place. Date/Time Smoking Status/Tobacco Use Comment F acility Aug 22, 2023 09:00 AM VA-TOBACCO QUIT 15 YRS OR MORE [facility] June 23, 2020 11:00 AM VA-TOBACCO FORMER USER [facility] June 23, 2020 11:00 AM VA-TOBACCO QUIT [...] ALL of a patient's completed or amended [place] Advance and Rescinded Directives. The entries below indicate that a directive exists for the patient, but an actual copy is not included with this document. The data comes from all [facility]. Date Advance Directives Provider Source Apr 19, 2017 ADVANCE DIRECTIVE DISCUSSION LUPE SINGH ROLE J [facility] Encounter Notes: All associated encounter notes This section contains the clinical notes associated to the Encounter. Date/Time Encounter Note(s) Provider Source Aug 24, 2023 09:18 AM LETTERS: LOCAL TITLE: FOLLOW UP RESULTS LETTER STANDARD TITLE: LETTERS DATE OF NOTE: AUG 24, 2023@09:18 ENTRY DATE: AUG 24, 2023@09:18:20 AUTHOR: SHAWN LOWE EXP COSIGNER: URGENCY: STATUS: COMPLETED [facility] [address] [place] [address] Aug RAUL OBREGON [address] [facility] [address] Dear : I am writing to inform you of the results of testing that you had done recently at the [facility]. - Complete Blood Count (red/white blood cell counts and platelets) White count: WBC 7.29 (08/22/23) (normal is 4.0-11.0) Hemoglobin: HGB 14.5 (08/22/23) (normal Male is 13.5-17.9; Female is 11.5-16) Hematocrit: HCT 42.3 (08/22/23) (normal Male is 41-54; Female is 34.5- 48) Platelets: PLT 214 (08/22/23) (normal is 150-400) - Electrolytes including sodium and potassium SODIUM 138 (08/22/23) (normal is 136-145) POTASSIUM 4.2 (08/22/23) (normal is 3.5-5.1) - Calcium CALCIUM 9.0 (08/22/23) (normal is 8.5-10.1) - Kidney function CREATININE 0.8 (08/22/23)(normal Male = less than 1.2; normal Female = less than 1.0)) UREA NITROGEN 17 (08/22/23) (normal Male is 8-26; normal Female is 10- 20) - Liver function Tests AST/SGOT 26 (08/22/23) (normal 15-37) ALT/SGPT 23 (08/22/23) (normal 13-61) ALK PHOSPHATASE 85 (08/22/23) (normal 45-117) BILIRUBIN, TOTAL 0.6 (08/22/23) (normal 0.2-1.0) Additional Comments: You blood tests, including your blood counts, electrolytes, kidney function, and liver function are all normal. The pharmacy anticoagulation clinic will help with renewal of your apixaban. Please contact our clinic if you have any questions or concerns. If you have any further questions or problems, please contact our nursing staff or provider at the following number: [phone]. SincerelySHAWN MD RESIDENT PHYSICIAN SHAWN LOWE [facility] Aug 22, 2023 09:21 AM INTERNAL MEDICINE NOTE: LOCAL TITLE: MEDICINE CLINIC NOTE STANDARD TITLE: INTERNAL MEDICINE NOTE DATE OF NOTE: AUG 22, 2023@09:21 ENTRY DATE: AUG 22, 2023@09:21:08 AUTHOR: KRISSY FLEMING EXP COSIGNER: URGENCY: STATUS: COMPLETED I have reviewed this patient's history, pertinent physical examination, laboratory, and (when obtained) radiologic or other diagnostic tests with the Internal Medicine Resident evaluating this patient. I agree with the treatment plan as outlined. This plan was reviewed with the resident on the date of this note. 68 yo M w/ hx of AF, non-ischemic cardiomyopathy, s/p right TKA, who is here for annual. left knee osteoarthritis. uses Tylenol only. could use top diclofenac gel. handicapped parking cert. chest pain w/ activity - left sided sharp pain, resolves after one min. started few wks ago. he was cardioverted few wks ago outside the [place] for AF. cor angio in 2017 showed multiple luminal abnormalities but nothing stented. SBPs at home 130s. vet takes carvedilol and apixaban. wut smoking decades ago. not on a statin. vet will get EKG in clinic. he has an appt w/ Cardiology outside the [place] next wk (heeln'd). the resident will clarify the hx to establish whether sx are stable or accelerating. if they are accelerating, admission could be considered. otherwise, exclusion of angina as a cuase w/ a stress test would be appropriate. tiffanie prefers to get this done outside the [place], as he has a planned appt w/ outside Cardiology next wk. of course, there could be a MSK cause for the sx, as well. we have encouarged vet to f/u w/ us in clinic or come to the ER, if sx were to worsen. tiffanie had a tubular adenoma on colonoscopy in 2017. he was supposed to have rpt colonoscopy in 09/2022. will clarify w/ vet whether he had this performed. tiffanie is seen by outside PC, as well. unknown lipids /es/ CASIMIRO FLEMING MD Staff Physician Signed: 08/22/2023 09:36 CASIMIRO FLEMING [facility] Aug 22, 2023 08:52 AM INTERNAL MEDICINE OUTPATIENT NOTE: LOCAL TITLE: MEDICINE CLINIC NURSING NOTE STANDARD TITLE: INTERNAL MEDICINE OUTPATIENT NOTE DATE OF NOTE: AUG 22, 2023@08:52 ENTRY DATE: AUG 22, 2023@08:52:29 AUTHOR: KINA IBRAHIM COSIGNER: URGENCY: STATUS: COMPLETED MEDICINE CLINIC NURSING NOTE Has ADDENDA TYPE OF VISIT: Appointment Check In Type of appointment: In-person appointment REASON FOR VISIT: Check up. ALLERGIES: Patient has answered NKA VITAL SIGNS: Blood Pressure: 151/90 (08/22/2023 08:50) Pulse: 61 (08/22/2023 08:50) Respiration: 16 (08/22/2023 08:50) Temperature: 97.6 F [36.4 C] (01/20/2021 08:25) Weight: 199 lb [90.26 kg] (08/22/2023 08:50) Height: 70 in [177.8 cm] (08/22/2023 08:50) BMI: 28.6 O2 Sat: 97% (08/22/2023 08:50) Pain: 6 (08/22/2023 08:50) PAIN SCREEN: Patient is not having significant pain that they wish to discuss with their provider today. MEDICATION Over the Counter/Herbal Medications: The patient states that they take some outside medications and/or herbals. Suicide Screen: C-SSRS Screening [place] Suicide Severity Rating Scale (C-SSRS) screener 1. Over the past month, have you wished you were or wished you could go to sleep and not wake up? No 2. Over the past month, have you had any actual thoughts of killing yourself? No 3. Over the past month, have you been thinking about how you might do this? Response not required due to responses to other questions. 4. Over the past month, have you had these thoughts and had some intention of acting on them? Response not required due to responses to other questions. 5. Over the past month, have you started to work out or worked out the details of how to kill yourself? Response not required due to responses to other questions. 6. If yes, at any time in the past month did you intend to carry out this plan? Response not required due to responses to other questions. 7. In your lifetime, have you ever done anything, started to do anything, or prepared to do anything to end your life (for example, collected pills, obtained a gun, gave away valuables, went to the roof but didn't jump)? No 8. If YES, was this within the past 3 months? Response not required due to responses to other questions. Depression Screening: Perform PHQ-2 A PHQ-2 screen was performed. The score was 0 which is a negative screen for depression. Over the past two weeks, how often have you been bothered by the following problems? 1. Little interest or pleasure in doing things Not at all 2. Feeling down, depressed, or hopeless Not at all Alcohol Use Screen (AUDIT-C): Alcohol Screen: SCREEN FOR ALCOHOL (AUDIT-C) An alcohol screening test (AUDIT-C) was negative (score=0). 1. How often did you have a drink containing alcohol in the past year? Consider a drink to be a 12 ounce can or bottle of regular beer, 8 ounces of malt liquor, a 5 ounce glass of table wine, or a 1.5 ounce shot of liquor (like scotch, gin, or vodka). Never 2. How many drinks containing alcohol did you have on a typical day when you were drinking in the past year? Response not required due to responses to other questions. 3. How often did you have six or more drinks on one occasion in the past year? Response not required due to responses to other questions. PTSD Screening: PC-PTSD-5 A PTSD screening test (PC-PTSD-5) was negative (score=0). IN THE PAST MONTH, have you ever had any experience that was so frightening, horrible or traumatic. For example: A serious accident or fire a physical or sexual assault or abuse An earthquake or flood A war Seeing someone be killed or seriously injured Having a loved one through homicide or suicide 1. Have you ever experienced this kind of event? NO 2. Had nightmares about the event(s) or thought about the event(s) when you did not want to? Response not required due to responses to other questions. 3. Tried hard not to think about the event(s) or went out of your way to avoid situations that reminded you of the event(s)? Response not required due to responses to other questions. 4. Been constantly on guard, watchful, or easily startled? Response not required due to responses to other questions. 5. [place] numb or detached from people, activities, or your surroundings? Response not required due to responses to other questions. 6. [place] guilty or unable to stop blaming yourself or others for the event(s) or any problems the event(s) may have caused? Response not required due to responses to other questions. Nursing Annual Screening: Fall History Screen During the past 12 months, have you had any falls? Patient does not report any falls in the past 12 months. MEDICATIONS: Patient is on one of the following medication classes: Antihypertensives, Antidepressants, Antipsychotics, Diuretics, or Controlled substance medication used for pain. Script Talk Screen Are you able to read your prescription bottles with your glasses, magnifiers or other aids? Yes or patient not taking any prescriptions. Skin Screen Patient reports any current pressure ulcers, a history of pressure ulcers, or a wound from a medical library assistant or Patient is bed-confined or a wheelchair-user or Patient requires assistance to transfer/change position No, Skin Screen is Negative Home Abuse/Violence Screen Is your home free of abuse and violence? Yes MOVE! Program Screen Body Mass Index (BMI)= 28.6 [place]: Collection DT Specimen Test Name Result Units Ref Range 04/30/2019 08:02 BLOOD HEMOGLOBIN A1C 5.3 % 4.0 - 6.0 [place] Hgb A1C: No data available [place] Hgb A1C: No data available Point of Care Hgb A1C: POC HGB A1C____ No Outpatient Nutrition Screen Body Mass Index (BMI)= 28.6 [place]: Collection DT Specimen Test Name Result Units Ref Range 04/30/2019 08:02 BLOOD HEMOGLOBIN A1C 5.3 % 4.0 - 6.0 [place] Hgb A1C: No data available [place] Hgb A1C: No data available Point of Care Hgb A1C: POC HGB A1C____ Is patient's BMI less than 18.5? No Does patient have swallowing, coughing, or chewing problems affecting oral intake? No Has patient experienced unplanned weight loss or gain greater than 10 pounds over the last 2 months? No Is patient's Hgb A1C (Glycosylated Hemoglobin) greater than 9.5? No Is patient receiving Total Parenteral Nutrition (TPN) or Tube Feedings? No Patient Health Education Screen BARRIERS/SPECIAL NEEDS: No barriers identified PREFERRED STYLE OF LEARNING: No preference stated Client Assistive Service (JAYDEN) Screen Does the patient require assistance with outpatient visit? No Tobacco Use Screening: The patient is a former tobacco user. The patient quit fifteen or more years ago. Homelessness/Food Insecurity Screen: In the past 2 months, have you been living in stable housing that you own, rent, or stay in as part of a household? Yes - Living in stable housing. Are you worried or concerned that in the next 2 months you may NOT have stable housing that you own, rent, or stay in as part of a household? No - Not worried about housing near future The reports the following: Within the past 12 months, you worried whether your food would run out before you got money to buy more. Never true Within the past 12 months, the food you bought just didn't last and you didn't have money to get more. Never true Food Assistance Programs [facility] Food Assistance Programs [facility] COVID-19 Immunization: Refused Pfizer Monovalent COVID-19 vaccine Immunization: COVID-19 (PFIZER), MRNA, LNP-S, PF, HAO-SUCROSE, 30 MCG/0.3 ML (AGES 12+ YEARS) Refusal Reason: PATIENT DECISION Patient refuses all immunization(s) in the COVID-19 group Date Documented: 08/22/23 08:57 Toxic Exposure Screening: The /caregiver was asked if they believe the [place] experienced any toxic exposure(s), such as Airborne Hazards and [place], [place] War related exposures, Agent [place], Radiation, contaminated water at [place] or other such exposures, while serving in the [employer]. /caregiver believes the was exposed to the following while serving in the [employer]: [place] contaminated water exposure: /caregiver was made aware of educational resources that includes information on presumptive conditions and how to file a claim. Printed information was offered and provided if desired. No questions at this time /caregiver was informed of local points of contact. Contact information for local resources: - Veterans Benefits for claims submission: Have the call or have them visit the following web address for online scheduling: [email or web address] A/s/ - [place] Healthcare Enrollment: 5-348-818-VETS ([phone]) - Find a Senior Principal (VSO): Have the call 1-827-NBXYSEQ or look up their VSO at: [email or web address].org/find- [email or web address]-cvso.html - [facility] Navigators: Corina Mason, HEALTH SYSTEM [phone] [email or web address] Toxic Exposure Screening Follow-Up reminder is needed. Name of person notified: Dr Lowe /nubia/ KINA IBRAHIM LPN STAFF SUPERVISOR GARMENT MANUFACTURING Signed: 08/22/2023 09:06 08/24/2023 ADDENDUM STATUS: COMPLETED Toxic Exposure Screening Follow-Up: Exposure Concern(s): 08/22/2023 [place] Related Exposures - Toxic Exposure Concern Follow-up Question(s): 08/22/2023 No Questions - Toxic Exposure Concern declines further assistance at this time. /nubia/ CORINA MASON NURSE PRACTITIONER Signed: 08/24/2023 07:55 KINA IBRAHIM [facility] Aug 22, 2023 08:17 AM INTERNAL MEDICINE NOTE: LOCAL TITLE: MEDICINE CLINIC NOTE STANDARD TITLE: INTERNAL MEDICINE NOTE DATE OF NOTE: AUG 22, 2023@08:17 ENTRY DATE: AUG 22, 2023@08:17:35 AUTHOR: SHAWN LOWE EXP COSIGNER: URGENCY: STATUS: COMPLETED MEDICINE CLINIC NOTE Has ADDENDA RAUL OBREGON is a 68 year old MALE Nurse's Note Reviewed. HPI/ROS: Raul Obregon is a 68 year old male with PMH atrial fibrillation (on apixaban), nonischemic cardiomyopathy, right knee OA s/p TKA (04/17/2017), HTN (on carvedilol). Patient has PCP outside [place] system. Last P[facility] visit 01/20/2021. Patient was recently seen in the ED on 08/16/23 for palpiatations. Has had 2 or 3 previous episodes which have been successfully treated with electrical cardioversion. On the morning of the ED visit, he felt his heart start to race and feel irregular. He underwent electrical cardioversion successfully. Patient reports that ever since he presented to the ED for afib (just prior to cardioversion), he has had intermittent daily episodes of chest pain. It is on the left side of the chest and is mild. Triggered by activity but resolves after 1 minute. This has been a pretty consistent course for him. Last saw cardiology on 07/10/23 ([facility]). Last TTE in 2022 within normal limits per cardiology note (06/23/22, LVEF 55%). [place] to be recovered with low dose carvedilol. Planned repeat TTE in 2024. Patient with chronic bilateral knee osteoarthirits. Had right knee TKA in 2017. Has ongoign left knee pain that is worse with activity. he is trying to manage this with acetaminophen alone, but pain is persistent. No fevers, chills, unexpected weight loss (patient has been losing weight with dietary chagnes), or other acute concerns in clinic today. TTE (06/23/22) Final Impressions: 1. Normal left ventricular size, mildly increased wall thickness, low normal global systolic function, calculated EF of 55 %. 2. Right ventricular cavity size is normal, global systolic RV function is normal. 3. Mildly enlarged left atrium. 4. The mitral valve is sclerotic, trace mitral regurgitation. 5. The inferior vena cava is normal sized, respiratory size variation greater than 50%. 6. The aortic sinus is dilated with a maximal diameter of 4.0 cm. 7. No pericardial effusion. Past medical history/Active Problems: Active problems - Computerized Problem List is the source for the followin. Osteoarthritis of knee 2. AF- Atrial Fibrillation ([facility] [id number]) 3. Cardiomyopathy 4. HTN - Hypertension ([facility] [id number]) 5. Long-term current use of anticoagulant Allergies: Patient has answered NKA Active Outpatient Medications (excluding Supplies): Outpatient Medications Status 1) APIXABAN 5MG TAB TAKE ONE TABLET BY MOUTH TWICE A DAY ACTIVE TO PREVENT STROKES Non-VA Medications Status 1) Non-VA CARVEDILOL 6.25MG TAB 3.125MG MOUTH TWICE A ACTIVE DAY 2) Non-VA CHOLECALCIF 25MCG (D3-1,000UNIT) TAB 2000UNIT ACTIVE MOUTH EVERY MORNING 3) Non-VA MULTIVITAMIN/MINERALS SENIOR FORMULA TAB 2 ACTIVE TABLETS MOUTH EVERY DAY 4 Total Medications MEDICATION RECONCILIATION Outpatient At this visit I have reviewed the medication list, and discussed relevant medications with the patient/surrogate. An updated patient medication list was given to the participant(s). ( ) No Change (x) Change/New: I have noted this on the patient's copy of the medication list. Education on NEW Medication: I have reviewed the medication list for possible drug:drug interactions or contraindications prior to ordering NEW medications during this visit. (x)Patient instructed. I noted new medication on patient's copy of the medication list. Patient sent to Pharmacist for education on new medication. ( )Patient ( )Family Member ( )Caregiver indicated readiness to learn and has been instructed on action, dose, frequency and side effects of the new medication and I noted new medication on participant's copy of the medication list. ( ) Verbalizes understanding of instructions. ( ) Needs additional reinforcement of instructions(sent to Pharmacist). ( )Patient unable to participate in learning/instruction. EXAM: VS: Temp: 97.6 F [36.4 C] (01/20/2021 08:25) BP: 142/86 (01/20/2021 08:29) Pulse:57 (01/20/2021 08:29) Resp: 18 (01/20/2021 08:25) Pain: 4 (01/20/2021 08:25) Weight: WEIGHTS IN LAST 6 MONTHS - NONE FOUND O2 sat: 98% (01/20/2021 08:25) General: Resting on bed comfortably, in no acute distress HEENT: Atraumatic, sclera anicteric Lungs: Clear to ascultation bilaterally, no wheezes or crackles apprecaited. CV: Regular rate, regular rhythm. No murmurs appreciated. No chest tenderness to palpation Abdomen: Soft, nondistended, nontender to palpation of all four quadrants Extremities: No pitting edema. Skin: No acute rash Neuro: A&Ox3. Data/Labs: LAB RESULTS LAST 48 HRS - NONE FOUND Assessment and Plan: # Atrial Fibrllation Patient has had longstanding atrial fibrillation for ~ 6 years. Anticoagulated on apixaban, rate-controlled while on carvedilol. Recently in ED for symptomatic Afib and was cardioverted. No feelings of heart racing or palpitations today. - Cardiology follow-up (OS[facility]) on 08/28, recommend discussing zio patch monitoring for afib burden - Continue apixaban, to be managed by pharmacy anticoagulation clinic - CBC, CMP for monitoring # Intermittent sharp chest pain Patient reports that ever since he presented to the ED for afib (just prior to cardioversion), he has had intermittent daily episodes of chest pain. It is on the left side of the chest and is mild. Triggered by activity but resolves after 1 minute. This has been a pretty consistent course for him. Overall history is less suggestive of cardiac chest pain (e.g. anigna) - 12 lead EKG WNL - Cardiology follow-up (OSH) on 08/28, recommend discussing stress test with this appointment setter # HTN BP elevated to 151/90 (146/84 on recheck). Patient notes he measures his BP at home. Currenlty on carvedilol 3.125 mg PO BID. Recommended continued home BP monitoring, and to contact his PCP if persistenlty high. # NICM Follows with appointment setter outside [facility]. Last saw cardiology on 07/10/23 ([facility]). Last TTE in 2022 within normal limits per cardiology note (06/23/22, LVEF 55%). [place] to be recovered with low dose carvedilol. Planned repeat TTE in 2024. # R knee OA s/p TKA 2018 # L knee OA Patient with chronic bilateral knee osteoarthirits. Had right knee TKA in 2018. Has ongoign left knee pain that is worse with activity. he is trying to manage this with acetaminophen alone, but pain is persistent. He would like ot hold off on surgery for as long as he can. Offered diclofenac gel PRN, patient interested in this. Advised some caution with excessive NSAID use in setting of NICM. - Handicap permit provided - Diclofenac gel PRN - Acetaminophen PRN # HCM & screening A1c: 5.2 (02/22/23) Lipids: Last Lipid panel 02/22/23. Cholesterol 206. LDL 105, HDL 52. Colon cancer: FIT test (02/28/23) negative Prostate Cancer: PSA ).18 (12/01/22) Lung cancer: Former smoker (0.5 packs/day for 10 years), not enough to meet criteria for screening AAA: Negative (11/01/21) HIV: Once in lifetime Hepatitis C: Negative (02/04/15) Immunizations - Shingrix: 01/14/2022 - Tdap: 07/20/2016 - Pneumonia: 10/19/2021 - Influenza: 11/16/2022 - COVID: 11/16/2022 To do at next visit: Annual Patient staffed with Dr. Fleming Education on Treatment Plan: Patient indicates readiness to learn, verbalizes understanding, agreement and satisfaction with the treatment plan. Denies further questions. Patient indicates readiness to learn and has been instructed on action, dose, frequency, and side effects of medications. Patient verbalizes understanding. The medication list above was reviewed with the patient at today's visit. I have indicated discrepancies under each medication that is not being taken as prescribed. I have updated the medicines under the med tab as appropriate. /petra LOWE MD RESIDENT PHYSICIAN Signed: 08/22/2023 09:56 Receipt Acknowledged By: 08/22/2023 14:37 /nubia/ CASIMIRO FLEMING MD Staff Physician 08/22/2023 11:09 /nubia/ PAWEL BRAVO [facility] Clinical Food Production Worker, [facility] 08/22/2023 ADDENDUM STATUS: COMPLETED Diclofenac gel is the best choice of NSAID for pain as it is least likely to predispose pt to GIBs. APAP does not affect COX1/2 so no concern for bleed with this med at max doses. /nubia/ PAWEL BRAVO [facility] Clinical Food Production Worker, [facility] Signed: 08/22/2023 11:10 SHAWN LOWE [facility]
--- OUTSIDE RECORDS SUMMARY | 2023-08-24 10:08 | XMS_ITS | Encounter Summary ---
Author Organization [facility] Address [address] [place] [address] Care Team Providers Care Jacker Name Role Phone Carmela Sweeney MD Primary Care Pr ovider Encounter Details Date Type Department Care Team (Late st Contact Info) Description 09/20/2015 Orders Only [facility] [address] [place] [address] , Bean Estrada MD [address] [place] [address] Social History Tobacco Use Types Packs/Day Years Used Date Smoking Tobacco: Never Assessed Sex and Gender Information Value Date Recorded Sex Assigned at Not on file Gender Identity Not on file Sexual Orientation Not on file documented as of this encounter Plan of Treatment Not on file documented as of this encounter Visit Diagnoses Not on filedocumented in this encounter Care Teams Jacker Relationship Specialty Start Date End Date Carmela Sweeney MD [address] [place], [place] [address] PCP - General 05/24/10 documented as of this encounter
--- OUTSIDE RECORDS SUMMARY | 2023-08-24 10:08 | XMS_ITS | Clinical Summary ---
Author Organization [facility] Address [address] [place] [address] Care Team Providers Care Patternmaker Apprentice Metal Name Role Phone Carmela Sweeney MD Primary Care Pr ovider Source Comments You are receiving this document as you are listed as the primary care provider,follow-up provider, or the patient has been referred to you for consultation.This is in compliance with the Medicare and[facility] Hospital[facility] EHR Incentive Program,which states Providers who transition their patient to another setting of careor provider of care or refers their patient to another provider of care shouldprovide summary care record for each transition of care or referral. MOVE Guides Allergies No known active allergies Medications Medication [...] Comments Blood Pressure 156/77 03/06/2018 12:43 PM PAYLOADER MACHINE OPERATOR Pulse 49 03/06/2018 12:43 PM PAYLOADER MACHINE OPERATOR Temperature 36.5 ??C (97.7 ??F) 03/06/2018 12:[address] Respiratory Rate 16 03/06/2018 12:43 PM PAYLOADER MACHINE OPERATOR Oxygen Saturation 100% 03/06/2018 12:43 PM PAYLOADER MACHINE OPERATOR Inhaled Oxygen Concentration - - Weight 86.2 kg (190 lb 0.6 oz) 03/06/2018 11:59 AM PAYLOADER MACHINE OPERATOR Height 177.8 cm (5' 10) 03/06/2018 11:59 AM PAYLOADER MACHINE OPERATOR Body Mass Index 27.27 03/06/2018 11:59 AM PAYLOADER MACHINE OPERATOR Plan of Treatment Health Maintenance Due Date [...] 11:31 AM 01/26/2016 2:30 PM Care Teams Patternmaker Apprentice Metal Relationship Specialty Start Date End Date Carmela Seweney MD [address] [place] [address] PCP - General 05/24/10
--- OUTSIDE RECORDS SUMMARY | 2023-08-24 10:08 | XMS_ITS | Clinical Summary ---
Author Organization [facility] Address [place], [place] [address] Care Team Providers Care Phlebotomy Coordinator Name Role Phone Mike Costello MD Primary [...] 02/21/2019 10/19/2021 Overview: - 01/[address]: EF 30% - 03/[address]: EF 40-45% - 12/06/18 Echo at [facility]: EF 45% Routine general medical exam ination at a health care facility 03/29/2020 Overview: Lipids - 04/12/95 cholesterol 183, LDL 111 Dexa- none Colon - 2000 Thyroid- none PSA - 09/16/99 - 0.3 Hep B-none Tetanus-1995 Diabetic-no Encounters Date Type Department Care Team Description 08/16/2023 Nurse Triage [facility] [address] [place] [address] Sofía Bailey PA heart rate 08/16/2023 Nurse Triage [facility] [address] [place] [address] Mike Costello MD Fast Heartbeat 08/16/2023 Telephone [facility] [address] [facility] [address] [place] [address] Elvin Modi MD Error-please disregard 07/10/2023 2:00 PM CDT Office Visit [facility] [address] [place] [phone] Elvin Modi MD Follow Up (Yearly follow up Paroxysmal atrial fibrillation ) 07/10/2023 Travel 06/02/2023 Refill [facility] [address] [place] [address] Mike Costello MD Refill Request (Tolterodine) from Last 3 Months Immunizations Name Administration Dates Next Due AMB Influenza, IIV3 (Age >=3 years)(Flu Clinic Only) 11/29/2010 AMB Influenza, IIV4 PF (=>6 mos Flulaval,Fluzone Fluarix)(Flu Clinic Only) 11/11/2019,12/12/2016 COVID-19 vaccine (Moderna 100mcg/0.5mL) PF, MDV 05/03/2020 COVID-19 vaccine (Moderna Arian kyler 50mcg/0.25mL) PF, MDV 05/30/2021 COVID-19 vaccine (WIN Advanced Systems[employer] NTech 30mcg/0.3mL) 12YO+ HAO-SUCROSE PF, MDV 10/19/2021 [...] Body Mass Index 28.88 02/22/2023 3:00 PM [employer] Plan of Treatment Upcoming Encounters Date Type Department Care Team (Late st Contact Info) Description 08/29/2023 8:00 AM CDT Office Visit [facility] [address] [facility] [address] [place], [place] [id number] Isma Rivero MD [address] [place] [address] 11/23/2023 8:15 AM CDT Orders Only [facility] [address] [place] [address] [place], [place] 11/30/2023 8:15 AM CDT [place] [facility] [address] [place] [address] Javon Chakraborty MD [address] [place] [address] Health Maintenance Due Date Last Done Comments COVID-19 vaccine series (2022-24 season) 2023 11/16/2022, 10/19/2021, 05/30/2021, Additional history [...] Additional history exists Tetanus booster 04/03/2029 04/03/2019, 06/0 02/2016, 04/19/2007, Additional history exists Hepatitis C screening for ag e 18-79 Completed 02/04/2015 Tdap Completed 07/20/2016, 04/19/2007 Pneumococcal series for age 65+ Completed , 03/29/2020 AAA screening age 65-74 Completed 11/01/2021 Zoster (shingles) series for age 50+ Completed 01/14/2022, 11/15/2021 Medical Devices Implanted Type Area Hot Box Checker Device Identifier Shelf Expiration Date Model / Serial / Lot Stent Sinus 8mm Propel Contour Bioabsorb - [id number] Implanted:Qty: 2 on 04/22/2019 by Rogerio Kong MD at [facility] l: Nose [employer] 01/29/2020 [id number]# / / [id number] Stent Ent Reg Steroid-Releas ing Propel Bioabsorb - [id number] Implanted:Qty: 1 on 04/22/2019 by Rogerio Kong MD at [facility] l: Nose [employer] 03/14/2020 [id number]# / / [id number] Stent Ent Reg Steroid-Releas ing Propel Bioabsorb - [id number] Implanted:Qty: 1 on 04/22/2019 by Rogerio Kong MD at [facility] l: Nose [employer] 08/27/2020 [id number]# / / [id number] Sinuva Sinus Implant Implanted:Qty: 2 on 12/04/2019 by Rogerio Kong MD at [facility] l: Nose 12/18/2020 [id number] / / [id number] Procedures Procedure Name Priority Date/Time Associated Diagnosis Comments OCCULT BLOOD IFOBT STOOL Routine 02/26/2023 3:12 PM [employer] Screening for colon cancer LIPID PANEL W REFLEX MEASURED LDL Routine 02/22/2023 3:37 PM [employer] Hyperlipidemia, mixed US AORTA Routine 11/01/2021 9:01 AM CDT Screening for AAA (abdominal aortic aneurysm) ANTI HCV Routine 02/04/2015 9:03 AM [employer] Need for hepatitis C screening test from Last 3 Months or Most Recently Relevant to Health Maintenance Results * OCCULT BLOOD IFOBT STOOL (02/26/2023 3:12 PM [employer]) STOOL BLOOD ,IFOBT Negative Negative 02/28/2023 3:36 PM [employer] Stool STOOL SPECIMEN / Unknown Non-Blood / Unknown 02/26/2023 3:12 PM [employer] 02/28/2023 3:13 PM [employer] Mike Costello MD LABORATORY [facility] [address] [place] [address], * (ABNORMAL) LIPID PANEL W REFLEX MEASURED LDL (02/22/2023 3:37 PM [employer]) CHOLESTEROL,TOTAL 206(H) 100 - 199 mg/dL 02/23/2023 1:50 PM [facility] [employer] Comment: Cholesterol, Total Reference Ranges Desirable <200 mg/dL Borderline 200-239 mg/dL High >=240 mg/dL TRIGLYCERIDES 246(H) <150 mg/dL 02/23/2023 1:50 PM [facility] HDL CHOLESTEROL 52 >40 mg/dL 1:50 PM [facility] NON-HDL CHOLESTEROL 154(H) <145 mg/dl 02/23/2023 1:50 PM [facility] CHOL/HDL RATIO 3.96 <4.50 02/23/2023 1:50 PM [facility] LDL CHOLESTEROL 105 <=130 mg/dL 02/23/2023 1:50 PM [facility] VLDL CHOLESTEROL 49(H) <=30 mg/dL 02/23/2023 1:50 PM [facility] PROVIDER ORDERED STATUS RANDOM 02/23/2023 1:50 PM [facility] Blood BLOOD SPECIMEN / Unknown Venipuncture / Unknown 02/22/2023 3:37 PM [employer] 02/22/2023 3:38 PM [employer] Mike Costello MD CHEMISTRY [facility] [address] [place] [address], [place] * US AORTA (11/01/2021 9:01 AM CDT) Anatomical Region Laterality Modality Abdomen, AORTA Ultrasound 11/01/2021 1:57 PM CDT Narrative 11/01/2021 1:57 PM CDT For Patients: ??As a result of the Cures Act, medical imaging exams and procedure [...] Mike Costello MD US * ANTI HCV [65156.2] (02/04/2015 9:03 AM [employer]) HEPATITIS C ANTIBODY Non-Reacti ve Non-Reacti ve 02/04/2015 4:58 PM [facility] [employer] Blood specimen (specimen) BLOOD SPECIMEN / Unknown Venipuncture / Unknown 02/04/2015 9:03 AM [facility] [employer] 02/04/2015 9:03 AM [facility] [employer] Narrative [facility] - 02/04/2015 4:58 PM [employer] Antibodies to HCV not detected; does not exclude the possibility of exposure to HCV. Mike Costello MD SEND OUTS [facility] [address] [place] [address], from Last 3 Months or Most Recently [...] 9:43 AM 02/21/2019 5:25 PM Care Teams Phlebotomy Coordinator Relationship Specialty Start Date End Date Mike Costello MD [address] [place] [address] PCP - General 03/26/07
[2023-08-24 10:10] LABS: Chloride* 106 mmol/L (96-114); Slide Review Reflex No
[2023-08-24 10:11] LABS: Potassium* 4.2 mmol/L (3.6-5.1); Sodium* 138 mmol/L (135-149)
[2023-08-24 10:13] LABS: Estimated Glomerular Filt Rate 82 ml/min
[2023-08-24 10:14] LABS: Anion Gap 6 mEq/L (7-15); Blood Urea Nitrogen* 19 mg/dL (7-30); Calcium* 8.7 mg/dL (8.4-10.6); Carbon Dioxide* 26 mmol/L (20-32); Glucose* 123 mg/dL (60-115)
[2023-08-24 10:26] LABS: Troponin I* 0.01 ng/mL (0.01-0.04)
--- NOTE | 2023-08-24 12:00 | ED.NURSE ---
Patient given juice and no nausea/vomiting from that. Tolerated well. Patient was walked around the unit and denied any dizziness or lightheadedness. Patient polaced back on cardiac technologist and no rhythm changes noted.
== END 2023-08-24 12:20 | disposition home or self-care (01) ==
PROVIDERS: Emergency Provider Internal Medicine; PCP Family Medicine
DX: I48.91 Unspecified atrial fibrillation (principal)
CPT/HCPCS: 36415; 71045; 80048; 84484; 85025; 92960; 93005; 94761; 99156; 99283; 99285